=== PATIENT | male | born 1955 | race Caucasian/White ===

== ENCOUNTER 2017-07-26 15:42 | Observation (INO) | payer BC ==
[2017-07-26] MEDS ORDERED: NS 0.9% 1000 ML* 1,000 ML IV ONE ×3 (16:33→22:17)
[2017-07-26 16:54] LABS: ABS Basophils 0.1 10^3/ul (0-0.2); ABS Eosinophils 0.2 10^3/ul (0-0.6); ABS Lymphocytes 2.3 10^3/ul (1.0-4.8); ABS Monocytes 0.5 10^3/ul (0-0.8); ABS Neutrophils 4.5 10^3/ul (1.5-7.7); ABS Nucleated RBC 0 10^3/ul; Eosinophil % 2.3 % (0-6); Hematocrit 40 % (42-52); Hemoglobin 13.4 g/dl (14.0-18.0); Lymphocyte % 30.5 % (25-47); Mean Corpuscular HGB Conc 34 g/dl (31-36); Mean Corpuscular Hemoglobin 27 pg (27-31); Mean Corpuscular Volume 81 fL (80-94); Mean Platelet Volume 8.3 um3 (7.4-10.4); Nucleated Red Blood Cells % 0.2; Platelet Count 306 10^3/ul (150-450); Red Blood Count 4.94 10^6/ul (4.0-5.4); Red Cell Distribution Width 14 % (10.5-15); White Blood Count 7.5 10^3/ul (3.5-10.8)
[2017-07-26 17:02] LABS: INR 1.04 (0.77-1.02)
--- OUTSIDE RECORDS SUMMARY | 2017-07-26 17:05 | XMS REPORT ---
:1955 External Reference #:[id number] Author Organization Formerly [facility] Address [address] [place] [address] Phone [phone] Care Team Providers Name Role Phone Jami Olvera M.D. Primary Care Physician Unavailable Payers Type Date Identification Numbers Payment Provider Subscriber Commercial Effective: Policy Number: Nia Terrell 2013 [id number] Expires: 2016 Group Name: [employer] [place] [address] [address] PayID: [id number] MACI Molina [id number] Medigap Part B Effective: Policy Number: Nia Terrell 2010 [id number] Expires: 2013 Group Name: [employer] [address] [address] PayID: [id number] MACI Molina [id number] Medigap Part B Effective: Policy Number: Nia DONOVANISAÍAS Owencindy 2016 [id number] Group Name: [employer] [address] [address] PayID: [id number] MACI Molina 35597 Problems Description No Information Family History Date Family Member(s) Problem(s) Comments Father due to Cancer, Esophageal () Mother due to Cancer, Colon () Maternal Grandfather due to SC () Social History Type Date Description Comments Marital Status Lives With Spouse Cigarette Use current cigarette smoker occasional cigg, Quit as of 03/2011 Allergies, Adverse Reactions, Alerts Date Description Reaction Status Severity Comments 12/13/2004 NKDA active Medications Medication Date Status Form Strength Qnty SIG Indications Ordering Provider Miralax 07/13/ Active Powder 3350NF 510un 1 capful K62.89 Harry 2018 its mixed as Heetderks MD rachelle directions in water by mouth daily until stooling resumes. as needed after 2 days without stool. Ventolin HFA 08/08/ Active Aerosol 108(90Base 1unit 2 puffs J20.9 Lizzette 2016 ) mcg/Act s every every Dylon, 4-6 hours LOG HOOKER-C as needed wheezing/ti ghtness No Active 08/08/ Hx Unknown Medications 2017 - 2016 Doxycycline 08/08/ Hx Capsules 100mg 20cap 1 tab by J20.9 Lizzette Hyclate 2016 - s mouth twice Dylon, 07/04/ a day x 10 LOG HOOKER-C 2018 days Guaifenesin-Code 08/08/ Hx Syrup 100-10mg/5 240ml 1-2 J20.9 Lizzette ine 2017 - ML teaspoon Dylon, 07/04/ every 4-6 LOG HOOKER-C 2018 hours as needed cough Amoxicillin/Clav 05/29/ Hx Tablets 875-125mg 20tab 1 tablet 461.8 Lizzette silva 2012 - s bid x 10 Dylon, Potassium 08/08/ days LOG HOOKER-C 2016 Doxycycline 04/14/ Hx Capsules 100mg 2caps 2 po now 916.4 Shawnti Hyclate 2010 - for R. Storm, 08/08/ possible LOG HOOKER-C 2017 lyme disease exposure Clarithromycin 03/13/ Hx Tablets 500mg 20tab 1 po bid 486 Dannywnti 2010 - s for R. Storm, 08/08/ pneumonia LOG HOOKER-C 2017 Zithromax Z-Reji 09/01/ Hx Tablets 250mg 6tabs 2 po on day 466.0 Shawnti 2008 - 1, 1 po on R. Storm, 09/11/ days 2-5 LOG HOOKER-C 2008 Proventil HFA 09/01/ Hx Aerosol 108mcg/Act 1unit 2 puffs q4h 466.0 Shawnti 2008 - s prn cough, R. Storm, 08/08/ wheeze, LOG HOOKER-C 2016 shortness of breath Penicillin VK 05/08/ Hx Tablets 500mg 20tab One PO bid 034.0 Tiera 2007 - s For 10 Days A. 09/01/ Selina Yancey [facility] Physical Therapy 02/14/ Hx Zaire 2005 - treat right P. 09/01/ hip pain Selina Olvera M.D. Immunizations CPT Code Status Date Vaccine Lot # [id number] Given 07/18/2017 Zoster (Shingles) Vaccine (HZV), Recombinant, [id number] Subunit, Adjuvanted 34543 Given 07/18/2017 Tdap (Adacel) [id number] 98315 Given 03/26/2017 Influenza Virus Vaccine, Quadrivalent, 3 Yr > Quad, Preserv Free 92691 Given 05/07/2012 Tdap (Adacel) [id number] Vital Signs Date Vital Result Comment 07/18/2017 Weight 255.00 lb Weight in kg's 115.668 BP Systolic 114 mmHg BP Diastolic 74 mmHg Heart Rate 70 /min Body Temperature 97.6 F Respiratory Rate 17 /min O2 % BldC Oximetry 98 % 07/13/2017 Weight 262.00 lb Weight in kg's 118.843 BP Systolic 120 mmHg BP Diastolic 85 mmHg Heart Rate 80 /min Body Temperature 98.3 F 07/11/2017 Weight 260.00 lb Weight in kg's 117.936 BP Systolic 120 mmHg BP Diastolic 76 mmHg Heart Rate 96 /min Body Temperature 99.1 F O2 % BldC Oximetry 95 % 07/04/2017 Weight 268.00 lb Weight in kg's 121.565 BP Systolic 140 mmHg BP Diastolic 81 mmHg Heart Rate 76 /min Body Temperature 97.6 F Height 72 inches 6'0" BMI (Body Mass Index) 36.3 kg/m2 O2 % BldC Oximetry 94 % 08/08/2016 Weight 255.00 lb Weight in kg's 115.668 BP Systolic 132 mmHg BP Diastolic 90 mmHg Heart Rate 67 /min Body Temperature 96.4 F Respiratory Rate 18 /min O2 % BldC Oximetry 97 % 05/23/2013 Weight 259.00 lb Weight in kg's 117.482 BP Systolic 120 mmHg BP Diastolic 80 mmHg Heart Rate 80 /min Body Temperature 97.1 F 05/29/2012 Weight 259.00 lb Weight in kg's 117.482 BP Systolic 130 mmHg BP Diastolic 90 mmHg Heart Rate 78 /min Body Temperature 97.6 F O2 % BldC Oximetry 98 % 04/14/2011 Weight 258.00 lb Weight in kg's 117.029 BP Systolic 100 mmHg BP Diastolic 70 mmHg Heart Rate 68 /min Body Temperature 97.5 F 03/13/2011 Weight 250.00 lb Weight in kg's 113.400 BP Systolic 118 mmHg BP Diastolic 72 mmHg Heart Rate 82 /min Body Temperature 98.7 F Last Menstrual Period 0 O2 % BldC Oximetry 96 % At Room Air 09/01/2008 Weight 250.00 lb Weight in kg's 113.400 BP Systolic 130 mmHg BP Diastolic 90 mmHg Heart Rate 80 /min Body Temperature 97.2 F O2 % BldC Oximetry 93 % 99% after neb tx 05/08/2006 Weight 245.50 lb Weight in kg's 111.359 BP Systolic 110 mmHg BP Diastolic 72 mmHg Body Temperature 98.3 F Height 71.75 inches 5'11.75" BMI (Body Mass Index) 33.5 kg/m2 12/13/2004 Weight 247.00 lb Weight in kg's 112.039 BP Systolic 120 mmHg BP Diastolic 80 mmHg Heart Rate 80 /min Respiratory Rate 18 /min Height 71.75 inches 5'11.75" BMI (Body Mass Index) 33.7 kg/m2 08/24/2004 Weight 246.00 lb Weight in kg's 111.586 BP Systolic 134 mmHg BP Diastolic 78 mmHg Results Test Date Test Result H/L Range Note Laboratory test 07/18/2017 Hepatitis C Rna <pending> finding Quant Laboratory test 07/04/2017 Hepatitis C Undetected Undetected 1 finding Genotype Comp Metabolic 07/04/2017 Sodium 141 mmol/L 133-145 Panel Potassium 4.3 mmol/L 3.5-5.0 Chloride 105 mmol/L 101-111 Co2 Carbon Dioxide 31 mmol/L 22-32 Anion Gap 5 mmol/L 2-11 Glucose 102 mg/dL High 70-100 Blood Urea Nitrogen 13 mg/dL 6-24 Creatinine 1.11 mg/dL 0.67-1.17 BUN/Creatinine Ratio 11.7 8-20 Calcium 9.3 mg/dL 8.6-10.3 Total Protein 7.0 g/dL 6.4-8.9 Albumin 4.2 g/dL 3.2-5.2 Globulin 2.8 g/dL 2-4 Albumin/Globulin Ratio 1.5 1-3 Total Bilirubin 0.30 mg/dL 0.2-1.0 Alkaline Phosphatase 54 U/L 34-104 Alt 18 U/L 7-52 Ast 14 U/L 13-39 Egfr Non- 67.6 >60 Egfr 86.9 >60 2 CBC Auto Diff 07/04/2017 White Blood Count 6.5 10^3/uL 3.5-10.8 Red Blood Count 4.91 10^6/uL 4.0-5.4 Hemoglobin 13.5 g/dL Low 14.0-18.0 Hematocrit 41 % Low 42-52 Mean Corpuscular Volume 83 fL 80-94 Mean Corpuscular Hemoglobin 28 pg 27-31 Mean Corpuscular HGB Conc 33 g/dL 31-36 Red Cell Distribution Width 14 % 10.5-15 Platelet Count 219 10^3/uL 150-450 Mean Platelet Volume 9 um3 7.4-10.4 Abs Neutrophils 4.1 10^3/uL 1.5-7.7 Abs Lymphocytes 1.8 10^3/uL 1.0-4.8 Abs Monocytes 0.4 10^3/uL 0-0.8 Abs Eosinophils 0.2 10^3/uL 0-0.6 Abs Basophils 0 10^3/uL 0-0.2 Abs Nucleated RBC 0 10^3/uL Granulocyte % 62.0 % 38-83 Lymphocyte % 28.2 % 25-47 Monocyte % 6.0 % 0-7 Eosinophil % 3.0 % 0-6 Basophil % 0.8 % 0-2 Nucleated Red Blood Cells % 0 Liver Function Panel 07/04/2017 Direct Bilirubin 0.10 mg/dL 0.03-0.18 Indirect Bilirubin 0.2 mg/dL Low 0.3-1.0 Laboratory test finding 02/09/2017 Surgical Interface SEE RESULT BELOW 3, 4 Order Urinalysis W/Microscopic 05/30/2013 Urine Color Yellow Urine Appearance Clear Urine Specific Belcourt 1.024 1.010-1.030 Urine Esterase Negative Negative Urine Nitrate Negative Negative Urine Urobilinogen Negative E.U./dL Negative Urine Protein Negative mg/dL Negative Urine pH 5.0 5-9 Urine Blood Negative Negative Urine Ketones Negative mg/dL Negative Urine Bilirubin Negative Negative Urine Glucose Negative mg/dL Negative Urine RBC 1+ (<3 /hpf) None Seen Urine Mucus Present /lpf Absent Bacteria Urine 1+ None Seen Urine DIP 05/30/2013 Leukocytes NEG Neg Urine Nitrites NEG Neg Urine pH 5 5-6 Total Protein, Urine NEG Neg Urine Glucose NORM Norm Urine Ketones NEG Neg Urobilinogen NORM Norm Urine Bilirubin NEG Neg Urine Blood 50+ High Neg Specific Belcourt 1.025 High 1.01-1.02 Laboratory test finding 05/30/2013 Hemoglobin A1c 5.8 % Less than 6.0 5 Urine DIP 05/23/2013 Leukocytes NEG Neg Urine Nitrites NEG Neg Urine pH 5 5-6 Total Protein, Urine NEG Neg Urine Glucose NORM Norm Urine Ketones NEG Neg Urobilinogen NORM Norm Urine Bilirubin NEG Neg Urine Blood TRACE Neg Specific Belcourt 1.015 1.01-1.02 Comp Metabolic Panel 05/23/2013 Sodium 139 mmol/L 133-145 Potassium 4.7 mmol/L 3.5-5.0 Chloride 103 mmol/L 101-111 Co2 Carbon Dioxide 28.0 mmol/L 22-32 Anion Gap 8.0 mmol/L 2-11 Glucose 129 mg/dL High 70-100 Blood Urea Nitrogen 19 mg/dL 6-24 Creatinine 1.10 mg/dL 0.50-1.40 BUN/Creatinine Ratio 17.3 8-20 Calcium 9.5 mg/dL 8.1-9.9 Total Protein 7.7 g/dL 6.2-8.1 Albumin 4.4 g/dL 3.6-5.4 Globulin 3.3 g/dL 2-4 Albumin/Globulin Ratio 1.3 1-3 Total Bilirubin 0.6 mg/dL 0.4-1.5 Alkaline Phosphatase 61 U/L 30-110 Alt 25 U/L 14-54 Ast 21 U/L 12-42 Egfr Non- 69.2 >60 Egfr 89.1 >60 6 CBC Auto Diff 05/23/2013 White Blood Count 7.7 10^3/uL 4.8-10.8 Red Blood Count 5.32 10^6/uL 4.0-5.4 Hemoglobin 14.7 g/dL 14.0-18.0 Hematocrit 44 % 42-52 Mean Corpuscular Volume 82 fL 80-94 Mean Corpuscular Hemoglobin 28 pg 27-31 Mean Corpuscular HGB Conc 34 g/dL 31-36 Red Cell Distribution Width 14 % 10.5-15 Platelet Count 228 10^3/uL 150-450 Mean Platelet Volume 9 um3 7.4-10.4 Abs Neutrophils 4.5 10^3/uL 1.5-7.7 Abs Lymphocytes 2.7 10^3/uL 1.0-4.8 Abs Monocytes 0.3 10^3/uL 0-0.8 Abs Eosinophils 0.2 10^3/uL 0-0.6 Abs Basophils 0.1 10^3/uL 0-0.2 Abs Nucleated RBC 0 10^3/uL Granulocyte % 57.9 % 38-83 Lymphocyte % 34.5 % 25-47 Monocyte % 4.1 % 1-9 Eosinophil % 2.4 % 0-6 Basophil % 1.1 % 0-2 Nucleated Red Blood Cells % 0 GC/Chlamydia Amplified Rna 05/23/2013 GC/Chlamydia Rna (SEE NOTE) 7 Urinalysis W/Microscopic 05/23/2013 Urine Color Yellow Urine Appearance Clear Urine Specific Belcourt 1.015 1.010-1.030 Urine Esterase Negative Negative Urine Nitrate Negative Negative Urine Urobilinogen Negative E.U./dL Negative Urine Protein Negative mg/dL Negative Urine pH 5.5 5-9 Urine Blood Negative Negative Urine Ketones Negative mg/dL Negative Urine Bilirubin Negative Negative Urine Glucose Negative mg/dL Negative Urine WBC None Seen None Seen Urine RBC None Seen None Seen Bacteria Urine None Seen None Seen Laboratory test finding 05/08/2006 Strep Screen pos Neg Lipid Profile (Trig/Chol/HDL) 12/14/2004 Cholesterol 222 mg/dL High Less Than 200 8 Triglyceride 233 mg/dL High 40-200 High Density Lipoprotein 41 mg/dL 40-60 Low Density Lipoprotein 134 mg/dL High Less Than 100 9 Cholesterol/HDL Ratio 5.41 AVERAGE High 1-4.97 Comp Metabolic Panel 12/14/2004 Anion Gap 10.0 mmol/L 2-11 10 Albumin/Globulin Ratio 1.6 1-3 Albumin 4.3 GM/DL 3.6-5.4 Alkaline Phosphatase 63 U/L 39-117 Alt (SGPT) 30 U/L 17-63 Ast (Sgot) 23 U/L 12-42 BUN 13 mg/dL 6-24 Calcium 9.9 mg/dL 8.7-10.2 Chloride 106 mmol/L 101-111 Co2 (Carbon Dioxide) 26.0 mmol/L 22-32 Creatinine 1.3 mg/dL 0.5-1.4 Globulin 2.7 GM/DL 2-4 Glucose 96 mg/dL 70-105 Potassium 5.1 mmol/L High 3.5-5.0 Sodium 142 mmol/L 135-145 Bilirubin Total 0.6 mg/dL 0.4-1.5 Total Protein 7.0 GM/DL 6.2-8.1 BUN/Creatinine Ratio 10.0 8-20 CBC With Electronic Diff 12/14/2004 White Blood Count 7.4 CUMM 4.8-10.8 Abs Basophils 0 0-0.2 Abs Eosinophils 0.3 0-0.6 Abs Grans 4.3 1.5-7.7 Abs Lymphs 2.3 1.0-4.8 Abs Mononuclear 0.4 0-0.8 Basophil % 0.6 % 0-2 Hematocrit 44 % 42-52 Hemoglobin 14.9 g/dL 14.0-18.0 Eosinophil % 3.9 % 0-6 Gran % 58.4 % 38-83 Lymph % 31.1 % 20-45 Mean Corpuscular HGB Cone 34 g/dL 32-36 Mean Corpuscular Hemoglob 28 pg 27-31 Mean Corpuscular Volume 84 um3 80-94 Mean Platelet Volume 10.1 um3 7.4-10.4 Mononuclear % 6.0 % 1-9 Platelet Count 259 CUMM 150-450 Red Cell Count 5.27 CUMM 4.6-6.2 Redcell Distribution WDTH 14 % 10.5-15 Urine DIP 12/13/2004 Leukocytes NEG Neg Urine Nitrites NEG Neg Urine pH 5 5-6 Total Protein, Urine NEG Neg Urine Glucose NORM Norm Urine Ketones NEG Neg Urobolinogen NORM Norm Urine Bilirubin NEG Neg Urine Blood NEG Neg 1 Assay failed to detect HCV RNA. This assay is not intended for HCV RNA detection purposes. ADDITIONAL INFORMATION This test was performed using the [employer] RealTime HCV Genotype II assay ([employer] [place], [place]). Test Performed by: [facility] [address] [place] [address] 2 Because ethnic data is not always readily available, this report includes an eGFR for both -Americans and non- Americans. The National Kidney Disease Education Program (NKDEP) does not endorse the use of the MDRD equation for patients that are not between the ages of 18 and 70, are , have extremes of body size, muscle mass, or nutritional status, or are non- or non-. According to the National Kidney Foundation, irrespective of diagnosis, the stage of the disease is based on the level of kidney function: Stage Description GFR(mL/min/1.73 m(2)) 1 Kidney damage with normal or decreased GFR 90 2 Kidney damage with mild decrease in GFR 60-89 3 Moderate decrease in GFR 30-59 4 Severe decrease in GFR 15-29 5 Kidney failure <15 (or dialysis) 3 [id number] 4 SEE RESULT BELOW Name: TYSON TERRELL : [address]: Elmer Romero MD Acct: [id number] Unit: [id number] AGE: 61 Location: [facility] Re02/09/17 SEX: M Status: DEP REF SPEC: [id number] PARISH: 02/09/[address]: Elmer Romero MD REQ: [id number] RECD: 02/09/17 STATUS: JACKELINE RODRIGUEZ DR: Jami Olvera MD _ ORDERED: LEVEL 4 COMMENTS: [id number] FINAL DIAGNOSIS Colon, ascending, biopsy: -- Benign colonic mucosa with nodular reactive lymphoid aggregate. CLINICAL HISTORY No history given POST-OPERATIVE DIAGNOSIS Ascending colon polyps, status post cold snare, diverticulosis. Conclusions/ Plan: Await pathology GROSS DESCRIPTION The specimen is received in formalin labeled, Ascending Colon Biopsy, and consists of a 0.6 x 0.6 x 0.1 cm aggregate of jeffries irregular soft tissue fragments which is submitted entirely in one cassette. Signed (signature on file) Jennifer Webster MD 01/21 1333 END OF REPORT * ML=Testing performed at Main Lab DEPARTMENT OF PATHOLOGY, [address] [place] [address] Misael Butts M.D. Director [facility] # [id number] 5 Therapeutic target for the treatment of diabetes Mellitus patients is <7% HBA1C, and in selective patients <6.0%.Please refer to [place] [employer] Association Diabetic care guidelines for further information. 6 Because ethnic data is not always readily available, this report includes an eGFR for both -Americans and non- Americans. The National Kidney Disease Education Program (NKDEP) does not endorse the use of the MDRD equation for patients that are not between the ages of 18 and 70, are , have extremes of body size, muscle mass, or nutritional status, or are non- or non-. According to the National Kidney Foundation, irrespective of diagnosis, the stage of the disease is based on the level of kidney function: Stage Description GFR(mL/min/1.73 m(2)) 1 Kidney damage with normal or decreased GFR 90 2 Kidney damage with mild decrease in GFR 60-89 3 Moderate decrease in GFR 30-59 4 Severe decrease in GFR 15-29 5 Kidney failure <15 (or dialysis) 7 RUN DATE: 05/27/13 [facility] LAB LIVE PAGE 1 RUN TIME: [address] [place] [address] Specimen Inquiry Name: TYSON TERRELL : [address]: Lizzette Pate NP Acct: [id number] Unit: [id number] AGE: 57 Location: [facility] Re05/23/13 SEX: M Status: REG REF SPEC: [id number] PARISH: 05/23/13-[address]: Lizzette Pate NP REQ: [id number] RECD: 05/23/13 STATUS: COMP _ SOURCE: URINE SPDESC: ORDERED: LOREE/Zaira RNA QUERIES: Medent Number [id number] Procedure Result Verified Site Chlamydia Trachomatis RNA Final 05/27/13- 1508 ML NEGATIVE for Chlamydia trachomatis rRNA GC (N. gonorrhoeae) RNA Final 05/27/13- 1515 ML NEGATIVE for Neisseria gonorrhoeae rRNA A negative result does not preclude the presence of a C. trachomatis or N. gonorrhoeae infection because results are dependent on adequate specimen collection, absence of inhibitors, and sufficient rRNA to be detected. Test results may be affected by improper specimen collection, improper storage, technical error, or specimen mixup. Limitations of the Procedure: The Aptima Combo 2 Assay is not intended for the evaluation of suspected sexual abuse or for other medico-legal indications. For those patients for whom a false positive result may have adverse psychosocial impact, the CDC recommends retesting by a method using an alternate technology. Therapeutic failure or success cannot be determined with the Aptima Combo 2 Assay since nucleic acid may persist following appropriate antimicrobial therapy. Results from the Aptima Combo 2 Assay should be interpreted in conjunction with other laboratory and clinical data available to the clinican. CONTINUED ON NEXT PAGE * ML=Testing performed at Main Lab DEPARTMENT OF PATHOLOGY, [facility] [employer] [place], [place] [address] Misael Butts M.D. Director [facility] Permit #[id number] RUN DATE: 05/27/13 [facility] LAB LIVE PAGE 2 RUN TIME: [address] [facility] [employer] [place], [place] [address] Specimen Inquiry Patient: TYSON TERRELL [id number] (Continued) Specimen: [id number] Collected: 05/23/13 Received: 05/23/13 (Continued) Procedure Result Verified Site GC (N. gonorrhoeae) RNA Final (continued) 05/27/13- 1519 Performance characteristics for detecting C. trachomatis and N. gonorrhoeae are derived from high prevalence populations. Positive results in low prevalence populations should be interpreted carefully with the understanding that the likelihood of a false positive may be higher than a true positive. END OF REPORT * ML=Testing performed at Main Lab DEPARTMENT OF PATHOLOGY, [address] [place] [address] Misael Butts M.D. Director [facility] Permit #[id number] Classification: Borderline High . 9 CALCULATED LDL APPROXIMATES THE VALUE OF A DIRECT LDL MEASUREMENT. Classification: Borderline High . 10 Anion gap measurement may be of limited value in the presence of any alkalosis, especially in a combined acid base disorder. . Procedures Date CPT Code Description Status Comment 02/04/2010 Colonoscopy Completed diverticulosis, otherwise negative. 2004- colonoscopy with inflamed adenomatous polyp. 09/01/2008 44081 Nebulizer Treatment Completed Encounters Type Date Location Provider CPT E/M Dx Office Visit 07/13/2017 9:15a [place] [address] K62.89 Office Visit 07/04/2017 2:30p [place] [address] B18.2 Office Visit 08/08/2016 4:00p Main Office MARCOS Sewell-C 06968 J20.9 Office Visit 05/23/2013 11:30a Main Office MARCOS Sewell-C 71558 599.70 Office Visit 05/29/2012 4:00p Main Office MARCOS Sewell-C 69524 461.8 Office Visit 04/14/2011 2:15p Main Office MARCOS Morris-C 36488 916.4 Office Visit 03/13/2011 11:00a Main Office MARCOS Morris-C 64804 486 Office Visit 09/01/2008 11:30a Main Office MARCOS Morris-C 56007 466.0 Office Visit 05/08/2006 10:30a Main Office Tiera Yancey 35710 034.0 F.N.P.C. Office Visit 12/13/2004 2:00p Main Office Jami Olvera M.D. 37208 V70.0 V17.3 V16.0 477.9 719.45 Office Visit 08/24/2004 1:00p Main Office Jami Olvera M.D. 37160 238.2 Plan of Care Future Appointment(s):08/15/2017 8:00 am - Harry Porter MD at Main Gslyoa3407/18/2017 - Harry Porter MDB18.2 Chronic viral hepatitis CComments: Asymptomatic, chronic HCV discovered on donating blood. His genotyping blood work did not show any hepatitis C. We will check a quantitative PCR just in case , but if this is normal I think we can confidently say he has cleared the infection on his own. If this is the case he can forego the GI visit.Ifpositive he will have to see them after allHis liver enzymes look great.K62.89 Other specified diseases of anus and rectumComments:His rectal abscess symptoms are gradually clearing. Still having some drainage, he will follow up with Dr. Barksdale on Sunday
--- OUTSIDE RECORDS SUMMARY | 2017-07-26 17:05 | XMS REPORT ---
:1955 External Reference #:[id number] Author Organization [facility] Address [address] [address] Phone [phone] Care Team Providers Name Role Phone Harry Porter MD Primary Care Physician Unavailable Payers Type Date Identification Numbers Payment Provider Subscriber Commercial Policy Number: [id number] [employer] Nima Terrell Group Number: [id number] [address] [address] Group Name: [place] [address] PayID: [id number] Problems Description No Information Social History Type Date Description Comments Smoking Patient is a former smoker Allergies, Adverse Reactions, Alerts Date Description Reaction Status Severity Comments 07/13/2017 NKDA active Medications Medication Date Status Form Strength Qnty SIG Indications Ordering Provider Augmentin Active Tablets 875-125mg 14tabs 1 tab by K61.1 Amrik 018 mouth Mecenas, twice a , FACS day Preparation H Active Cream 1-0.25-14.4 apply thin Unknown 000 -15% layer to external rectum 3-4 times a day as needed for pain/burni ng. Ibuprofen 200 0 Active Tablets 200mg 400-600mg Unknown 000 every 6 hours as needed for pain. Vital Signs Date Vital Result Comment 07/13/2017 Height 72 inches 6'0" Weight 250.00 lb Heart Rate 74 /min BP Systolic 140 mmHg BP Diastolic 88 mmHg Respiratory Rate 16 /min Body Temperature 97.9 F BMI (Body Mass Index) 33.9 kg/m2 Results Description No Information Procedures Date CPT Code Description Status 02/09/2017 38847 Colonoscopy Flexible Remove Tumor/Polyp/Lesion Snare Completed Technique 02/09/2017 Colonoscopy Completed Plan of Care Future Appointment(s):07/16/2017 11:30 am - Amrik Barksdale MD, [facility] at [facility]07/13/2017 - Amrik Barksdale MD, FACSK61.1 Rectal abscessNew Medication:Augmentin 875-125 mgFollow up:3-5 daysInstructions:Tub soaks 15-20 minutes 2 x/day. Use water as warm as tolerated. The packing will come out -- don't worry. Take all the antibiotics as prescribed.
--- OUTSIDE RECORDS SUMMARY | 2017-07-26 17:05 | XMS REPORT ---
:1955 External Reference #:[id number] Author Organization [facility] Address [address] [address] Phone [phone] Care Team Providers Name Role Phone Harry Porter MD Primary Care Physician Unavailable Payers Type Date Identification Numbers Payment Provider Subscriber Commercial Policy Number: [id number] [employer] Tyson Terrell Group Number: [id number] [address] [id number] Group Name: [place] [address] PayID: [id number] Problems Description No Information Social History Type Date Description Comments Smoking Patient is a former smoker Allergies, Adverse Reactions, Alerts Date Description Reaction Status Severity Comments 07/13/2017 NKDA active Medications Medication Date Status Form Strength Qnty SIG Indications Ordering Provider No Active Active Unknown Medications 018 Augmentin Hx Tablets 875-125mg 14tabs 1 tab by K61.1 Amrik Maldonado mouth [place], twice a , FACS day Preparation H Hx Cream 1-0.25-14.4 apply thin Unknown 000 -15% layer to external rectum 3-4 times a day as needed for pain/burni ng. Ibuprofen 200 0 Hx Tablets 200mg 400-600mg Unknown 000 every 6 hours as needed for pain. Vital Signs Date Vital Result Comment 07/20/2017 Heart Rate 78 /min Respiratory Rate 18 /min Body Temperature 96.6 F 07/16/2017 Heart Rate 82 /min Respiratory Rate 16 /min Body Temperature 97.7 F 07/13/2017 Height 72 inches 6'0" Weight 250.00 lb Heart Rate 74 /min BP Systolic 140 mmHg BP Diastolic 88 mmHg Respiratory Rate 16 /min Body Temperature 97.9 F BMI (Body Mass Index) 33.9 kg/m2 Results Test Date Test Result H/L Range Note Body Fluid C&S 07/13/2017 Body Fluid Cult Gram SEE RESULT BELOW 1 Stain 1 SEE RESULT BELOW Name: TYSON TERRELL : [address]: Amrik Barksdale MD Acct: [id number] Unit: [id number] AGE: 61 Location: [facility] Re07/13/17 SEX: M Status: REG REF SPEC: [id number] PARISH: 07/13/17-1130 [facility] DR: Amrik Barksdale MD REQ: [id number] RECD: 07/13/17 STATUS: COMP _ SOURCE: BODY FLUID SPDESC:RECTAL ORDERED: BF Cult/GS Procedure Result Reported Site Body Fluid Gram Stain Final 07/14/17- 0732 ML 4+ Neutrophils 4+ Gram Positive Cocci 4+ Gram Negative Bacilli Preparation By Direct Smear Body Fluid Culture Final 07/18/17- 0825 ML Organism 1 ESCHERICHIA COLI Quantity 3+ Organism 2 ESCHERICHIA COLI#2 Quantity 3+ Organism 3 BACTEROIDES FRAGILIS Quantity 3+ Beta Lactamase Positive Organism 4 STREPTOCOCCUS VIRIDANS GROUP Quantity 3+ Anaerobic sensitivities are not routinely performed. Positive isolates will be saved for one week. Please call the Microbiology Laboratory if susceptibility testing is needed. CONTINUED ON NEXT PAGE DEPARTMENT OF PATHOLOGY, [address] [place] [address] Misael Butts M.D. Director [facility] # [id number] Patient: TYSON TERRELL [id number] (Continued) Specimen: [id number] Collected: 07/13/17 Received: 07/13/17 (Continued) Procedure Result Reported Site Body Fluid Culture Final (continued) 07/18/17- 824 1. ESCHERICHIA COLI M.I.C. RX --------- ------ Ampicillin >=32 R Cefazolin <=4 S Cefepime <=1 S Ceftriaxone <=1 S Ciprofloxacin <=0.25 S Gentamicin <=1 S Levofloxacin <=0.12 S Meropenem <=0.25 S Nitrofurantoin <=16 S Tetracycline <=1 S Pipercillin/Tazobactam <=4 S Trimethoprim/Sulfamethoxazole <=20 S Amoxicillin/Clavulanic Acid 4 S Aztreonam <=1 S 2. ESCHERICHIA COLI#2 M.I.C. RX --------- ------ Ampicillin >=32 R Cefazolin <=4 S Cefepime <=1 S Ceftriaxone <=1 S Ciprofloxacin <=0.25 S Gentamicin >=16 R Levofloxacin <=0.12 S Meropenem <=0.25 S Nitrofurantoin <=16 S Tetracycline >=16 R Pipercillin/Tazobactam <=4 S Trimethoprim/Sulfamethoxazole >=320 R Amoxicillin/Clavulanic Acid 4 S Aztreonam <=1 S CONTINUED ON NEXT PAGE DEPARTMENT OF PATHOLOGY, [address] [place] [address] Misael Butts M.D. Director [facility] # [id number] Patient: TYSON TERRELL [id number] (Continued) Specimen: [id number] Collected: 07/13/17 Received: 07/13/17 (Continued) Procedure Result Reported Site Body Fluid Culture Final (continued) 07/18/17824 4. STREPTOCOCCUS VIRIDANS GROUP M.I.C. RX --------- ------ Chloramphenicol <=1 S Ampicillin <=0.06 S Penicillin <=0.03 S Meropenem <=0.06 S Cefepime <=0.25 S * Cefotaxime <=0.25 S Ceftriaxone <=0.25 S Levofloxacin <=0.25 S Azithromycin <=0.25 S Clindamycin <=0.06 S Erythromycin <=0.06 S Tetracycline >4 R Vancomycin 0.5 S Contact the Microbiology Department for any additional antibiotic reporting. * ML - Main Lab . END OF REPORT DEPARTMENT OF PATHOLOGY, [address] [place] [address] Misael Btuts M.D. Director [facility] # [id number] Procedures Date CPT Code Description Status 07/13/2017 22697 Anoscopy Completed 07/13/2017 66227 I&D Of Abscess Complicated Completed 02/09/2017 80901 Colonoscopy Flexible Remove Tumor/Polyp/Lesion Snare Completed Technique 02/09/2017 Colonoscopy Completed Plan of Care 07/16/2017 - Amrik Barksdale MD, FACSK61.1 Rectal abscessFollow up:Sunday with mid -level provider.
--- OUTSIDE RECORDS SUMMARY | 2017-07-26 17:05 | XMS REPORT ---
:1955 External Reference #:[id number] Author Organization [facility] Address [address] [address] Phone [phone] Care Team Providers Name Role Phone Harry Porter MD Primary Care Physician Unavailable Payers Type Date Identification Numbers Payment Provider Subscriber Commercial Policy Number: [id number] [employer] Tyson Terrell Group Number: [id number] [address] [id number] Group Name: [place] [address] PayID: [id number] Problems Description No Information Social History Type [...] pain. Vital Signs Date Vital Result Comment 07/16/2017 Heart Rate 82 /min Respiratory Rate [...] [address]: Amrik Barksdale MD Acct: [id number] Unit: [id number] AGE: 61 Location: [facility] Re07/13/17 SEX: M Status: REG REF SPEC: [id number] PARISH: 07/13/17-[address] [facility] [address]: Amrik Barksdale MD REQ: [id number] RECD: 07/13/17 STATUS: RES _ SOURCE: BODY FLUID SPDESC:RECTAL ORDERED: BF Cult/GS Procedure Result Reported Site Body Fluid Gram Stain Final 07/14/17- 0732 ML 4+ Neutrophils 4+ Gram Positive Cocci 4+ Gram Negative Bacilli Preparation By Direct Smear Body Fluid Culture Preliminary 07/16/17- 0840 ML Organism 1 ESCHERICHIA COLI Quantity 3+ Organism 2 ESCHERICHIA COLI#2 Quantity 3+ Organism 3 STREPTOCOCCUS ANGINOSUS Quantity 3+ Organism 4 BACTEROIDES FRAGILIS Quantity 3+ Beta Lactamase Positive Anaerobic sensitivities are not routinely performed. Positive isolates will be saved for one week. Please call the Microbiology Laboratory if susceptibility testing is needed. CONTINUED ON NEXT PAGE DEPARTMENT OF PATHOLOGY, [address] [place] [address] Misael Butts M.D. Director [facility] # [id number] Patient: TYSON TERRELL [id number] (Continued) Specimen: [id number] Collected: 07/13/17 Received: 07/13/17 (Continued) Procedure Result Reported Site Body Fluid Culture Preliminary (continued) 07/16/17- 839 1. ESCHERICHIA COLI M.I.C. RX --------- ------ [...] CONTINUED ON NEXT PAGE DEPARTMENT OF PATHOLOGY, [address] [place] [address] Misael Butts M.D. Director [facility] # [id number] Patient: TYSON TERRELL [id number] (Continued) Specimen: [id number] Collected: 07/13/17 Received: 07/13/17 (Continued) Procedure Result Reported Site Body Fluid Culture Preliminary (continued) Contact the Microbiology Department for any additional antibiotic reporting. * ML - Main Lab . END OF REPORT DEPARTMENT OF PATHOLOGY, [address] [place] [address] Misael Butts M.D. Director [facility] # [id number] Procedures Date CPT Code Description Status 07/13/2017 52810 Anoscopy Completed 07/13/2017 88723 I&D Of Abscess Complicated Completed 02/09/2017 42303 Colonoscopy Flexible Remove Tumor/Polyp/Lesion Snare Completed Technique 02/09/2017 Colonoscopy Completed Plan of Care Future Appointment(s):07/20/2017 11:00 am - DAISHA Jackson at [facility]07/16/2017 - Amrik Barksdale MD, FACSK61.1 Rectal abscessFollow up:Sunday with mid-level provider.
--- OUTSIDE RECORDS SUMMARY | 2017-07-26 17:06 | XMS REPORT ---
:1955 External Reference #:[id number] Author Organization [facility] Address [address] [place] [address] Phone [phone] Care Team Providers Name Role Phone Jami Olvera M.D. Primary Care Physician Unavailable Payers Type Date Identification Numbers Payment Provider Subscriber Commercial Effective: Policy Number: Nia Terrell 2013 [id number] Expires: 2016 Group Name: [employer] [place] [address] [address] PayID: [id number] MACI Molina [address] Medigap Part B Effective: Policy Number: Nia Terrell 2010 [id number] Expires: 2013 Group Name: [employer] [address] [address] PayID: [id number] MACI Molina 29908 Medigap Part B Effective: Policy Number: Nia DONOVANISAÍAS Owencindy 2016 [id number] Group Name: [employer] [address] [address] PayID: [id number] MACI Molina 24982 Problems Description No Information Family History Date Family Member(s) Problem(s) Comments Father due to Cancer, Esophageal () Mother due to Cancer, Colon () Maternal Grandfather due to GA () Social History Type Date Description Comments Marital Status Lives With Spouse Cigarette Use current cigarette smoker occasional cigg, Quit as of 03/2011 Allergies, Adverse Reactions, Alerts Date Description Reaction Status Severity Comments 12/13/2004 NKDA active Medications Medication Date Status Form Strength Qnty SIG Indications Ordering Provider Ventolin HFA 08/08/ Active Aerosol 108(90Base 1units 2 puffs J20.9 Lizzette 2016 ) mcg/Act every Dylon, every 4-6 TIRE STRIPPER-C hours as needed wheezing/t ightness No Active 08/08/ Hx Unknown Medications 2017 - 2016 Doxycycline 08/08/ Hx Capsules 100mg 20caps 1 tab by J20.9 Lizzette Hyclate 2017 - mouth Dyoln, 07/04/ twice a TIRE STRIPPER-C 2018 day x 10 days Guaifenesin-Code 08/08/ Hx Syrup 100-10mg/5 240ml 1-2 J20.9 Lizzette ine 2017 - ML teaspoon Dylon, 07/04/ every 4-6 TIRE STRIPPER-C 2018 hours as needed cough Amoxicillin/Clav 05/29/ Hx Tablets 875-125mg 20tabs 1 tablet 461.8 Lizzette silva 2012 - bid x 10 Dylon, Potassium 08/08/ days TIRE STRIPPER-C 2016 Doxycycline 04/14/ Hx Capsules 100mg 2caps 2 po now 916.4 Shawnti Hyclate 2010 - for R. Storm, 08/08/ possible TIRE STRIPPER-C 2017 lyme disease exposure Clarithromycin 03/13/ Hx Tablets 500mg 20tabs 1 po bid 486 Shawnti 2010 - for R. Daniel, 08/08/ pneumonia TIRE STRIPPER-C 2017 Zithromax Z-Reji 09/01/ Hx Tablets 250mg 6tabs 2 po on 466.0 Donaldnti 2008 - day 1, 1 R. Storm, 09/11/ po on days TIRE STRIPPER-C 2008 2-5 Proventil HFA 09/01/ Hx Aerosol 108mcg/Act 1units 2 puffs 466.0 Shawnti 2008 - q4h prn R. Storm, 08/08/ cough, TIRE STRIPPER-C 2016 wheeze, shortness of breath Penicillin VK 05/08/ Hx Tablets 500mg 20tabs One PO bid 034.0 Tiera 2006 - For 10 A. 09/01/ Days Bc, 2009 [facility] Physical Therapy 02/14/ Hx Zaire 2004 - treat P. 09/01/ right hip Blegen, 2009 pain M.D. Immunizations CPT Code Status Date Vaccine Lot # [id number] Given 03/26/2017 Influenza Virus Vaccine, Quadrivalent, 3 Yr > Quad, Preserv Free Vital Signs Date Vital Result Comment 07/11/2017 Weight 260.00 lb Weight in kg's [...] Test Result H/L Range Note Laboratory test 07/04/2017 Hepatitis C Genotype Undetected Undetected 1 finding Comp Metabolic Panel 07/04/2017 Sodium 141 mmol/L 133-145 Potassium 4.3 mmol/L 3.5-5.0 Chloride 105 mmol/L [...] Color Yellow Urine Appearance Clear Urine Specific [place] 1.024 1.010-1.030 Urine Esterase Negative Negative Urine [...] Neg Urine Blood 50+ High Neg Specific [place] 1.025 High 1.01-1.02 Laboratory test finding 05/30/2013 Hemoglobin A1c 5.8 % Less than 6.0 5 Urine DIP 05/23/2013 Leukocytes NEG Neg Urine Nitrites NEG Neg Urine pH 5 5-6 Total Protein, Urine NEG Neg Urine Glucose NORM Norm Urine Ketones NEG Neg Urobilinogen NORM Norm Urine Bilirubin NEG Neg Urine Blood TRACE Neg Specific [place] 1.015 1.01-1.02 Comp Metabolic Panel 05/23/2013 Sodium [...] Color Yellow Urine Appearance Clear Urine Specific [place] 1.015 1.010-1.030 Urine Esterase Negative Negative Urine [...] the [place] RealTime HCV Genotype II assay ([employer] [place], [place]). Test Performed by: [facility] [place] [address] [place] [address] 2 Because ethnic data is not always [...] 5 Kidney failure <15 (or dialysis) 3 [id number] 4 SEE RESULT BELOW Name: TYSON TERRELL : [address]: Elmer Romero MD Acct: [id number] Unit: [id number] AGE: 61 Location: [facility] Re02/09/17 SEX: M Status: DEP REF SPEC: [id number] PARISH: 02/09/[address]: Elmer Romero MD REQ: [id number] RECD: 02/09/17 STATUS: JACKELINE RODRIGUEZ DR: Jami Olvera MD _ ORDERED: LEVEL 4 COMMENTS: [id number] FINAL DIAGNOSIS Colon, ascending, biopsy: -- Benign [...] performed at Main Lab DEPARTMENT OF PATHOLOGY, [address] [place], [place] [address] Misael Butts M.D. Director [facility] # [id number] 5 Therapeutic target for the treatment of diabetes Mellitus patients is <7% HBA1C, and in selective patients <6.0%.Please refer to [place] [employer] Association Diabetic care guidelines for further [...] <15 (or dialysis) 7 RUN DATE: 05/27/13 [facility] LAB LIVE PAGE 1 RUN TIME: 1514 [place], [place] [address] Specimen Inquiry Name: TYSON TERRELL : [address]: Lizzette Pate NP Acct: [id number] Unit: [id number] AGE: 57 Location: [facility] Re05/23/13 SEX: M Status: REG REF SPEC: [id number] PARISH: 05/23/13-[address] [facility] [address]: Lizzette Pate NP REQ: [id number] RECD: 05/23/13 STATUS: COMP _ SOURCE: URINE SPDESC: ORDERED: GC/Chlam RNA QUERIES: Medent Number [id number] Procedure Result Verified Site Chlamydia Trachomatis RNA [...] result may have adverse psychosocial impact, the [facility] recommends retesting by a method using an [...] performed at Main Lab DEPARTMENT OF PATHOLOGY, [facility] [employer] [place] [address] Misael Butts M.D. Director [facility] Permit #[id number] RUN DATE: 05/27/13 [facility] LAB LIVE PAGE 2 RUN TIME: 479 [facility] [employer] [place], [place] [address] Specimen Inquiry Patient: TYSON TERRELL [id number] (Continued) Specimen: [id number] Collected: 05/23/13-1155 Received: 05/23/13-1746 (Continued) Procedure Result Verified Site GC (N. gonorrhoeae) RNA Final (continued) 05/27/13- 1515 Performance characteristics for detecting C. trachomatis and N. gonorrhoeae are derived from high prevalence populations. Positive results in low prevalence populations should be interpreted carefully with the understanding that the likelihood of a false positive may be higher than a true positive. END OF REPORT * ML=Testing performed at Main Lab DEPARTMENT OF PATHOLOGY, [address] [place] [address] Misael Butts M.D. Director [facility] Permit #[id number] Classification: Borderline High . 9 CALCULATED LDL APPROXIMATES THE VALUE OF A DIRECT LDL MEASUREMENT. Classification: Borderline High . 10 Anion gap measurement may be of limited value in the presence of any alkalosis, especially in a combined acid base disorder. . Procedures Date CPT Code Description Status Comment 02/04/2010 Colonoscopy Completed diverticulosis, otherwise negative. 2004- colonoscopy with inflamed adenomatous polyp. 09/01/2008 44900 Nebulizer Treatment Completed Encounters Type Date Location Provider CPT E/M Dx Office Visit 08/08/2016 4:00p Main Office DANA Sewell 75106 J20.9 Office Visit 05/23/2013 11:30a Main Office CHETNA SewellC 00383 599.70 Office Visit 05/29/2012 4:00p Main Office Lizzette Pate, [facility] 24261 461.8 Office Visit 04/14/2011 2:15p Main Office Ferny Sanchez, [facility] [address]0880 916.4 Office Visit 03/13/2011 11:00a Main Office Dannyfélixseth Sanchez, [facility] 70759 486 Office Visit 09/01/2008 11:30a Main Office Ferny Sanchez, [facility] 02010 466.0 Office Visit 05/08/2006 10:30a Main Office Tiera Yancey, [address] 034.0 [facility] Office Visit 12/13/2004 2:00p Main Office Jami Olvera M.D. 94043 V70.0 V17.3 V16.0 477.9 719.45 Office Visit 08/24/2004 1:00p Main Office Jami Olvera M.D. 91491 238.2 Plan of Care Future Appointment(s):08/15/2017 8:00 am - Harry Porter MD at Main Sidrpb9507/11/2017 - Harry Porter MDK62.89 Other specified diseases of anus and fvicyeW76.0 Acute anal fissureComments:He is already healing. We discussed that there is a very low risk of infection with an injury to this area.We will soften his stool to help with comfort while he heals.Recommendations:-Sitz bath -Prep-H -Miralax 1-2 daily. -Colace 1-2 daily
--- OUTSIDE RECORDS SUMMARY | 2017-07-26 17:06 | XMS REPORT ---
:1955 External Reference #:[id number] Author Organization [facility] Address [address] [place] [address] Phone [phone] Care Team Providers Name Role Phone Jami Olvera M.D. Primary Care Physician Unavailable Payers Type Date Identification Numbers Payment Provider Subscriber Commercial Effective: Policy Number: Nia Arguello 2013 [id number] Expires: 2016 Group Name: BC/BS of [place] [address] [address] PayID: [id number] MACI Molina [id number] Medigap Part B Effective: Policy Number: Nia Arguello 2010 [id number] Expires: 2013 Group Name: [employer] [address] [address] PayID: [id number] MACI Molina 29538 Medigap Part B Effective: Policy Number: Nia DONOVANISAÍAS Owencindy 2016 [id number] Group Name: [employer] [address] [address] PayID: [id number] MACI Molina [id number] Problems Description No Information Family History Date Family Member(s) Problem(s) Comments Father due to Cancer, Esophageal () Mother due to Cancer, Colon () Maternal Grandfather due to [place] () Social History Type Date Description Comments [...] mcg/Act s every every Dylon, 4-6 hours BUCKLE STRINGER-C as needed wheezing/ti ghtness No Active 08/08/ Hx Unknown Medications 2017 - 2016 Doxycycline 08/08/ Hx Capsules 100mg 20cap 1 tab by J20.9 Lizzette Hyclate 2016 - s mouth twice Dylon, 07/04/ a day x 10 BUCKLE STRINGER-C 2018 days Guaifenesin-Code 08/08/ Hx Syrup 100-10mg/5 240ml 1-2 J20.9 Lizzette ine 2017 - ML teaspoon Dylon, 07/04/ every 4-6 BUCKLE STRINGER-C 2018 hours as needed cough Amoxicillin/Clav 05/29/ Hx Tablets 875-125mg 20tab 1 tablet 461.8 Lizzette silva 2012 - s bid x 10 Dylon, Potassium 08/08/ days BUCKLE STRINGER-C 2016 Doxycycline 04/14/ Hx Capsules 100mg 2caps 2 po now 916.4 Shawnti Hyclate 2010 - for R. Storm, 08/08/ possible BUCKLE STRINGER-C 2017 lyme disease exposure Clarithromycin 03/13/ Hx Tablets 500mg 20tab 1 po bid 486 Dannywnti 2010 - s for R. Storm, 08/08/ pneumonia BUCKLE STRINGER-C 2017 Zithromax Z-Reji 09/01/ Hx Tablets 250mg 6tabs 2 po on day 466.0 Shawnti 2008 - 1, 1 po on R. Storm, 09/11/ days 2-5 BUCKLE STRINGER-C 2008 Proventil HFA 09/01/ Hx Aerosol 108mcg/Act 1unit 2 puffs q4h 466.0 Shawnti 2008 - s prn cough, R. Storm, 08/08/ wheeze, BUCKLE STRINGER-C 2016 shortness of breath Penicillin VK 05/08/ Hx Tablets 500mg 20tab One PO bid 034.0 Tiera 2007 - s For 10 Days A. 09/01/ Selina Yancey F.N.P.C[facility] Physical Therapy 02/14/ Linda Tai 2005 - treat right P. 09/01/ hip pain Selina Olvera M.D. Immunizations CPT Code Status Date Vaccine Lot # [id number] Given 03/26/2017 Influenza Virus Vaccine, Quadrivalent, 3 Yr > Quad, Preserv Free Vital Signs Date Vital Result Comment 07/13/2017 Weight 262.00 lb Weight in kg's [...] Color Yellow Urine Appearance Clear Urine Specific [place] 1.024 1.010-1.030 Urine Esterase Negative Negative Urine [...] Neg Urine Blood 50+ High Neg Specific [place] 1.025 High 1.01-1.02 Laboratory test finding 05/30/2013 Hemoglobin A1c 5.8 % Less than 6.0 5 Urine DIP 05/23/2013 Leukocytes NEG Neg Urine Nitrites NEG Neg Urine pH 5 5-6 Total Protein, Urine NEG Neg Urine Glucose NORM Norm Urine Ketones NEG Neg Urobilinogen NORM Norm Urine Bilirubin NEG Neg Urine Blood TRACE Neg Specific [place] 1.015 1.01-1.02 Comp Metabolic Panel 05/23/2013 Sodium [...] Color Yellow Urine Appearance Clear Urine Specific [place] 1.015 1.010-1.030 Urine Esterase Negative Negative Urine [...] the [place] RealTime HCV Genotype II assay ([employer] [place], [place]). Test Performed by: [facility] [address] [place] [address] 2 Because ethnic data is not always [...] 5 Kidney failure <15 (or dialysis) 3 [id number] 4 SEE RESULT BELOW Name: TYSON ARGUELLO : [address]: Elmer Romero MD Acct: [id number] Unit: [id number] AGE: 61 Location: [facility] Re02/09/17 SEX: M Status: DEP REF SPEC: [id number] PARISH: 02/09/[address] [facility] [address]: Elmer Romero MD REQ: [id number] RECD: 02/09/17 STATUS: JACKELINE RODRIGUEZ DR: Jami Olvera MD _ ORDERED: LEVEL 4 COMMENTS: [id number] FINAL DIAGNOSIS Colon, ascending, biopsy: -- Benign [...] performed at Main Lab DEPARTMENT OF PATHOLOGY, [facility] [place] [address] Misael Butts M.D. Director [facility] # [id number] 5 Therapeutic target for the treatment of diabetes Mellitus patients is <7% HBA1C, and in selective patients <6.0%.Please refer to [place] Diabetes Association Diabetic care guidelines for further [...] LAB LIVE PAGE 1 RUN TIME: 1514 [facility] [employer] [place], [place] [address] Specimen Inquiry Name: TYSON ARGUELLO : [address]: Lizzette Pate NP Acct: [id number] Unit: [id number] AGE: 57 Location: [facility] Re05/23/13 SEX: M Status: REG REF SPEC: [id number] PARISH: 05/23/13-[address] [facility] [address]: Lizzette Pate NP REQ: [id number] RECD: 05/23/13 STATUS: COMP _ SOURCE: URINE SPDESC: ORDERED: GC/Chlam RNA QUERIES: Medent Number [id number] Procedure Result Verified Site Chlamydia Trachomatis RNA [...] result may have adverse psychosocial impact, the [facility] recommends retesting by a method using an [...] performed at Main Lab DEPARTMENT OF PATHOLOGY, [facility] [place] [address] Misael Butts M.D. Director [facility] Permit #[id number] RUN DATE: 05/27/13 [facility] LAB LIVE PAGE 2 RUN TIME: 1405 [facility] [employer] [place], [place] [address] Specimen Inquiry Patient: TYSON ARGUELLO [id number] (Continued) Specimen: [id number] Collected: 05/23/13-1156 Received: 05/23/13-1746 (Continued) Procedure Result Verified Site [...] performed at Main Lab DEPARTMENT OF PATHOLOGY, [address] [place] [address] Misael Butts M.D. Director [facility] Permit #[id number] Classification: Borderline High . 9 CALCULATED LDL APPROXIMATES THE VALUE OF A DIRECT LDL MEASUREMENT. Classification: Borderline High . 10 Anion gap measurement may be of limited value in the presence of any alkalosis, especially in a combined acid base disorder. . Procedures Date CPT Code Description Status Comment 02/04/2010 Colonoscopy Completed diverticulosis, otherwise negative. 2004- colonoscopy with inflamed adenomatous polyp. 09/01/2008 39691 Nebulizer Treatment Completed Encounters Type Date Location Provider CPT E/M Dx Office Visit 08/08/2016 4:00p Main Office MARCOS Sewell-C 53178 J20.9 Office Visit 05/23/2013 11:30a Main Office Lizzette Pate [employer]-C 00341 599.70 Office Visit 05/29/2012 4:00p Main Office Lizzette Pate [employer]INGER-C 85685 461.8 Office Visit 04/14/2011 2:15p Main Office Ferny Sanchez [facility] 53641 916.4 Office Visit 03/13/2011 11:00a Main Office Ferny Sanchez [facility] [employer]-C 25241 486 Office Visit 09/01/2008 11:30a Main Office Ferny Sanchez [facility]C 35160 466.0 Office Visit 05/08/2006 10:30a Main Office Tiera Yancey, 51696 034.0 F.N.P.C. Office Visit 12/13/2004 2:00p Main Office Jami Olvera M.D. 97001 V70.0 V17.3 V16.0 477.9 719.45 Office Visit 08/24/2004 1:00p Main Office Jami Olvera M.D. 02401 238.2 Plan of Care Future Appointment(s):08/15/2017 8:00 am - Harry Porter MD at Main Cgzazu2807/13/2017 - Harry Porter MDK62.89 Other specified diseases of anus and rectumNew Medication:Miralax 3350 NFComments:It is now seeming more like a severe thrombosed hemorrhoid. The extent of it seems too severe for surgical treatment in this office today.We will get him over to surgical associates today for further assessment.
--- OUTSIDE RECORDS SUMMARY | 2017-07-26 17:07 | XMS REPORT ---
:1955 External Reference #:[id number] Author Organization [facility] Address [address] [place] [address] Phone [phone] Care Team Providers Name Role Phone Jami Olvera M.D. Primary Care Physician Unavailable Payers Type Date Identification Numbers Payment Provider Subscriber Commercial Effective: Policy Number: Nia Terrell 2013 [id number] Expires: 2016 Group Name: BC/BS [employer] [place] [address] [address] PayID: [id number] MACI Molina 27923 Medigap Part B Effective: Policy Number: Nia Terrell 2010 [id number] Expires: 2013 Group Name: [employer] [address] [address] PayID: [id number] MACI Molina 88358 Medigap Part B Effective: Policy Number: Nia DONOVANISAÍAS Owencindy 2016 [id number] Group Name: [employer] [address] [address] PayID: [id number] MACI Molina 31000 Problems Description No Information Family History Date Family Member(s) Problem(s) Comments Father due to Cancer, Esophageal () Mother due to Cancer, Colon () Maternal Grandfather due to [place] () Social History Type Date Description Comments [...] 2016 ) mcg/Act every Dylon, every 4-6 CLEANING SUPERVISOR-C hours as needed wheezing/t ightness No Active 08/08/ Hx Unknown Medications 2017 - 2016 Doxycycline 08/08/ Hx Capsules 100mg 20caps 1 tab by J20.9 Lizzette Hyclate 2017 - mouth Dylon, 07/04/ twice a CLEANING SUPERVISOR-C 2018 day x 10 days Guaifenesin-Code 08/08/ Hx Syrup 100-10mg/5 240ml 1-2 J20.9 Lizzette ine 2017 - ML teaspoon Dylon, 07/04/ every 4-6 [employer]ANING SUPERVISOR-C 2018 hours as needed cough Amoxicillin/Clav 05/29/ Hx Tablets 875-125mg 20tabs 1 tablet 461.8 Lizzette silva 2012 - bid x 10 Dylon, Potassium 08/08/ days [employer]ANING SUPERVISOR-C 2016 Doxycycline 04/14/ Hx Capsules 100mg 2caps 2 po now 916.4 Shawnti Hyclate 2010 - for R. Storm, 08/08/ possible CLEANING SUPERVISOR-C 2017 lyme disease exposure Clarithromycin 03/13/ Hx Tablets 500mg 20tabs 1 po bid 486 Shawnti 2010 - for R. Daniel, 08/08/ pneumonia [employer]ANING SUPERVISOR-C 2017 Zithromax Z-Reji 09/01/ Hx Tablets 250mg 6tabs 2 po on 466.0 Donaldnti 2008 - day 1, 1 R. Storm, 09/11/ po on days CLEANING SUPERVISOR-C 2008 2-5 Proventil HFA 09/01/ Hx Aerosol 108mcg/Act 1units 2 puffs 466.0 Shawnti 2008 - q4h prn R. Storm, 08/08/ cough, CLEANING SUPERVISOR-C 2016 wheeze, shortness of breath Penicillin VK 05/08/ Hx Tablets 500mg 20tabs One PO bid 034.0 Tiera 2006 - For 10 A. 09/01/ Days Bc, 2009 F.N.P.C. Physical Therapy 02/14/ Hx Zaire 2004 - treat P. 09/01/ right hip Blegen, 2009 pain M.D. Immunizations CPT Code Status Date Vaccine Lot # [id number] Given 03/26/2017 Influenza Virus Vaccine, Quadrivalent, 3 Yr > Quad, Preserv Free Vital Signs Date Vital Result Comment 07/04/2017 Weight 268.00 lb Weight in kg's [...] Note Laboratory test 07/04/2017 Hepatitis C Genotype <pending> finding Comp Metabolic Panel 07/04/2017 Sodium 141 [...] Egfr Non- 67.6 >60 Egfr 86.9 >60 1 CBC Auto Diff 07/04/2017 White Blood Count [...] finding 02/09/2017 Surgical Interface SEE RESULT BELOW 2, 3 Order Urinalysis W/Microscopic 05/30/2013 Urine Color Yellow Urine Appearance Clear Urine Specific [place] 1.024 1.010-1.030 Urine Esterase Negative Negative Urine [...] Neg Urine Blood 50+ High Neg Specific [place] 1.025 High 1.01-1.02 Laboratory test finding 05/30/2013 Hemoglobin A1c 5.8 % Less than 6.0 4 Urine DIP 05/23/2013 Leukocytes NEG Neg Urine Nitrites NEG Neg Urine pH 5 5-6 Total Protein, Urine NEG Neg Urine Glucose NORM Norm Urine Ketones NEG Neg Urobilinogen NORM Norm Urine Bilirubin NEG Neg Urine Blood TRACE Neg Specific [place] 1.015 1.01-1.02 Comp Metabolic Panel 05/23/2013 Sodium [...] Egfr Non- 69.2 >60 Egfr 89.1 >60 5 CBC Auto Diff 05/23/2013 White Blood Count [...] Amplified Rna 05/23/2013 GC/Chlamydia Rna (SEE NOTE) 6 Urinalysis W/Microscopic 05/23/2013 Urine Color Yellow Urine Appearance Clear Urine Specific [place] 1.015 1.010-1.030 Urine Esterase Negative Negative Urine [...] Cholesterol 222 mg/dL High Less Than 200 7 Triglyceride 233 mg/dL High 40-200 High Density Lipoprotein 41 mg/dL 40-60 Low Density Lipoprotein 134 mg/dL High Less Than 100 8 Cholesterol/HDL Ratio 5.41 AVERAGE High 1-4.97 Comp Metabolic Panel 12/14/2004 Anion Gap 10.0 mmol/L 2-11 9 Albumin/Globulin Ratio 1.6 1-3 Albumin 4.3 GM/DL [...] NEG Neg Urine Blood NEG Neg 1 Because ethnic data is not always readily [...] 15-29 5 Kidney failure <15 (or dialysis) 2 [id number] 3 SEE RESULT BELOW Name: TYSON TERRELL : [address]: Elmer Romero MD Acct: [id number] Unit: [id number] AGE: 61 Location: [facility] Re02/09/17 SEX: M Status: DEP REF SPEC: [id number] PARISH: 02/09/[address] [facility] [address]: Elmer Romero MD REQ: [id number] RECD: 02/09/17 STATUS: JACKELINE RODRIGUEZ DR: Jami Olvera MD _ ORDERED: LEVEL 4 COMMENTS: [id number] FINAL DIAGNOSIS Colon, ascending, biopsy: -- Benign [...] performed at Main Lab DEPARTMENT OF PATHOLOGY, [address] [place] [address] Misael Butts M.D. Director [facility] # [id number] 4 Therapeutic target for the treatment of diabetes Mellitus patients is <7% HBA1C, and in selective patients <6.0%.Please refer to [place] Diabetes Association Diabetic care guidelines for further information. 5 Because ethnic data is not always readily [...] 15-29 5 Kidney failure <15 (or dialysis) 6 RUN DATE: 05/27/13 [facility] LAB LIVE PAGE 1 RUN TIME: [address] [place] [address] Specimen Inquiry Name: TYSON TERRELL : [address]: Lizzette Pate NP Acct: [id number] Unit: [id number] AGE: 57 Location: [facility] Re05/23/13 SEX: M Status: REG REF SPEC: [id number] PARISH: 05/23/13-[address]: Lizzette Pate ELECTRICAL CAD DESIGNER REQ: [id number] RECD: 05/23/13544 STATUS: COMP _ SOURCE: URINE SPDESC: ORDERED: Crispy Gamer/Chlam RNA QUERIES: Medent Number [id number] Procedure Result Verified Site Chlamydia Trachomatis RNA [...] ON NEXT PAGE * ML=Testing performed at [facility] Lab DEPARTMENT OF PATHOLOGY, [address] [place] [address] Miseal Butts M.D. Director [facility] Permit #[id number] RUN DATE: 05/27/13 [facility] LAB LIVE PAGE 2 RUN TIME: [address] [place] [address] Specimen Inquiry Patient: TYSON TERRELL [id number] (Continued) Specimen: [id number] Collected: 05/23/13-1155 Received: 05/23/13-1746 (Continued) Procedure Result [...] performed at Main Lab DEPARTMENT OF PATHOLOGY, [address] [place] [address] Misael Butts M.D. Director [facility] Permit #[id number] Classification: Borderline High . 8 CALCULATED LDL APPROXIMATES THE VALUE OF A DIRECT LDL MEASUREMENT. Classification: Borderline High . 9 Anion gap measurement may be of limited value in the presence of any alkalosis, especially in a combined acid base disorder. . Procedures Date CPT Code Description Status Comment 02/04/2010 Colonoscopy Completed diverticulosis, otherwise negative. 2004- colonoscopy with inflamed adenomatous polyp. 09/01/2008 47899 Nebulizer Treatment Completed Encounters Type Date Location Provider CPT E/M Dx Office Visit 08/08/2016 4:00p Main Office DANA Sewell 31655 J20.9 Office Visit 05/23/2013 11:30a Main Office DANA Sewell 39557 599.70 Office Visit 05/29/2012 4:00p Main Office DANA Sewell 48713 461.8 Office Visit 04/14/2011 2:15p Main Office DANA Morris 18638 916.4 Office Visit 03/13/2011 11:00a Main Office DANA Morris 27796 486 Office Visit 09/01/2008 11:30a Main Office DANA Morris 17177 466.0 Office Visit 05/08/2006 10:30a Main Office Tiera Yancey, 43820 034.0 F.N.P.C. Office Visit 12/13/2004 2:00p Main Office Jami Olvera M.D. 99306 V70.0 V17.3 V16.0 477.9 719.45 Office Visit 08/24/2004 1:00p Main Office Jami Olvera M.D. 67139 238.2 Plan of Care 07/04/2017 - Harry Porter MDB18.2 Chronic viral hepatitis CComments: Asymptomatic, chronic HCV discovered on donating blood. Will check genotype and refer to GI.Follow up:Refer to gastroenterology.
[2017-07-26 17:12] LABS: EGFR Non-African American 64.2 (>60)
--- NOTE | 2017-07-26 17:17 | RAD ---
HISTORY: Altered mental status, without finding difficulty COMPARISONS: None TECHNIQUE: Multiple contiguous axial CT scans were obtained of the head without intravenous contrast. FINDINGS: HEMORRHAGE/INFARCT: There is no hemorrhage or acute infarct. MASSES/SHIFT: There is no mass or shift. EXTRA-AXIAL SPACES: There are no extra-axial fluid collections. SULCI AND VENTRICLES: The sulci and ventricles are normal in size and position for the patient's stated age. CEREBRUM: There are no focal parenchymal abnormalities. BRAINSTEM: There are no focal parenchymal abnormalities. CEREBELLUM: There are no focal parenchymal abnormalities. VESSELS: The vessels are grossly normal. PARANASAL SINUSES: The paranasal sinuses are clear. ORBITS: The orbits are unremarkable. BONES AND SOFT TISSUE: No bone or soft tissue abnormalities are noted. OTHER: None IMPRESSION: NO ACUTE INTRACRANIAL PATHOLOGY.
--- NOTE | 2017-07-26 17:19 | RAD ---
HISTORY: Altered mental status COMPARISONS: None VIEWS: 4: Frontal dual-energy and lateral views of the chest. FINDINGS: CARDIOMEDIASTINAL SILHOUETTE: The cardiomediastinal silhouette is normal. TRISTAN: The tristan are normal. PLEURA: The costophrenic angles are sharp. No pleural abnormalities are noted. LUNG PARENCHYMA: The lungs are clear. ABDOMEN: The upper abdomen is clear. There is no subphrenic gas. BONES AND SOFT TISSUES: No bone or soft tissue abnormalities are noted. OTHER: None. IMPRESSION: NO ACTIVE CARDIOPULMONARY DISEASE.
[2017-07-26] MEDS ORDERED: Aspirin TAB* 325 MG PO ONE (17:56)
[2017-07-26] MEDS ORDERED: Iohexol 350* (CONTRAST) 500 ML MDV IV ONE (18:40)
--- NOTE | 2017-07-26 19:56 | RAD ---
HISTORY: Confusion, recent perianal abscess COMPARISONS: Head CT dated July 26, 2017 TECHNIQUE: Multiple contiguous axial CT scans were obtained of the head and neck after the administration of nonionic intravenous contrast timed to the systemic arterial phase of contrast enhancement. Coronal and sagittal multiplanar reformations are submitted for review. Multiple 3-D maximum intensity projection reconstructions are also submitted for review. FINDINGS: CTA NECK: AORTIC ARCH: There is a normal three-vessel branching pattern of the aortic arch. There is no ostial or proximal stenosis of the cephalic great vessels. RIGHT VERTEBRAL ARTERY: The right vertebral artery is patent along its course, without stenosis. LEFT VERTEBRAL ARTERY: The left vertebral artery is patent along its course, without stenosis. DOMINANCE: The vertebral arteries are codominant. RIGHT COMMON CAROTID ARTERY: The right common carotid artery is patent. The right carotid bifurcation occurs at C4-C5 RIGHT INTERNAL CAROTID ARTERY: There is no right internal carotid artery stenosis by NASCET criteria. RIGHT EXTERNAL CAROTID ARTERY: The right external carotid artery is unremarkable. LEFT COMMON CAROTID ARTERY: The left common carotid artery is patent. The left carotid bifurcation occurs at C3-C4 LEFT INTERNAL CAROTID ARTERY: There is no left internal carotid artery stenosis by NASCET criteria. LEFT EXTERNAL CAROTID ARTERY: The left external carotid artery is unremarkable. VENOUS CIRCULATION: The venous system is unremarkable. SALIVARY GLANDS: The parotid glands, submandibular glands, sublingual glands are normal. NASAL CAVITY/NASOPHARYNX: The nasal cavity and nasopharynx are normal. ORAL CAVITY/OROPHARYNX: The oral cavity is obscured by streak artifact from dental amalgam. The visualized oral cavity and oropharynx are unremarkable. LARYNGEAL APPARATUS/HYPOPHARYNX: The laryngeal apparatus and hypopharynx are normal. UPPER AIRWAY/UPPER ESOPHAGUS: The visualized upper airway and esophagus are normal. LUNG APICES: The lung apices are clear. THYROID GLAND: The thyroid gland is normal. LYMPH NODES: There is no lymphadenopathy by size criteria. BONES AND SOFT TISSUES: Degenerative changes are noted of the spine. CTA HEAD: INTRACRANIAL CIRCULATION: There is no aneurysm, vascular malformation, occlusion, or stenosis of the visualized intracranial circulation. The anterior communicating artery complex is clear. Bilateral posterior communicating arteries are identified. VENOUS CIRCULATION: The venous system is unremarkable. PERFUSION: There is no obvious parenchymal perfusion deficit. HEMORRHAGE/INFARCT: There is no hemorrhage or acute infarct. MASSES/SHIFT: There is no mass or shift. EXTRA-AXIAL SPACES: There are no extra-axial fluid collections. SULCI AND VENTRICLES: The sulci and ventricles are normal in size and position for the patient's stated age. CEREBRUM: There are no focal parenchymal abnormalities. BRAINSTEM: There are no focal parenchymal abnormalities. CEREBELLUM: There are no focal parenchymal abnormalities. PARANASAL SINUSES: The paranasal sinuses are clear. ORBITS: The orbits are unremarkable. BONES AND SOFT TISSUE: No bone or soft tissue abnormalities are noted. OTHER: There is no abnormal enhancement. IMPRESSION: 1. NO INTERNAL CAROTID ARTERY STENOSIS BY NASCET CRITERIA. 2. NO ANEURYSM, VASCULAR MALFORMATION, OCCLUSION, OR STENOSIS OF THE VISUALIZED INTRACRANIAL CIRCULATION.. CPT II Codes: 3100F
--- NOTE | 2017-07-26 20:03 | RAD ---
CLINICAL HISTORY: Confusion, recent perianal abscess COMPARISON: None TECHNIQUE: Multiple contiguous axial CT scans were obtained of the abdomen and pelvis after the administration of intravenous contrast. Coronal and sagittal multiplanar reformations are submitted for review. Oral contrast was not administered. FINDINGS: Evaluation limited by suboptimal contrast opacification. LUNG BASES: The lung bases are clear. LIVER: The liver is normal in shape, size, contour, and attenuation. BILE DUCTS: There is no intrahepatic or extrahepatic biliary dilatation. GALLBLADDER: The gallbladder is normal, without pericholecystic inflammatory change. PANCREAS: The pancreas is normal, without mass or ductal dilatation. SPLEEN: Normal in size and appearance. UPPER GI TRACT: Evaluation of the gastrointestinal tract is limited by incomplete gastric distention. The upper GI tract is unremarkable. SMALL BOWEL AND MESENTERY: The small bowel is normal in contour, course, and caliber. There is no obstruction or dilatation. COLON: There is extensive diverticulosis of the descending and sigmoid colon. There is a small amount of perirenal gas density without appreciable loculated fluid collection. ADRENALS: Normal bilaterally. KIDNEYS: The kidneys are normal in shape, size, contour, and axis. There is no hydronephrosis or nephrolithiasis. BLADDER: The bladder is smooth in contour. PELVIC ORGANS: The prostate gland is normal. The seminal vesicles are symmetric. AORTA: The aorta is normal. IVC: Unremarkable LYMPH NODES: There is no lymphadenopathy by size criteria. ABDOMINAL WALL: There is a small fat-containing inguinal hernia. BONES AND SOFT TISSUES: There are mild diffuse degenerative changes. OTHER: None IMPRESSION: 1. DIVERTICULOSIS. 2. THERE IS PERIANAL GAS DENSITY. GIVEN THE HISTORY OF PERIANAL ABSCESS, THIS MAY REFLECT THE SEQUELA OF PERIANAL ABSCESS INCISION AND DRAINAGE. RECOMMEND CORRELATION WITH ANY HISTORY OF RECENT INSTRUMENTATION. THERE IS NO DEFINITE LOCULATED FLUID COLLECTION TO SUGGEST RESIDUAL ABSCESS. 3. SMALL FAT CONTAINING LEFT INGUINAL HERNIA.
[2017-07-26] MEDS ORDERED: Al Hydrox/Mg Hydrox/Simet LIQ* 30 ML UDC PO PRN (20:41)
[2017-07-26] MEDS ORDERED: Ondansetron INJ* 2 MG/ML VIAL IV PRN (20:41)
[2017-07-26] MEDS ORDERED: Acetaminophen TAB* 325 MG PO PRN (20:41)
[2017-07-26] MEDS ORDERED: Senna TAB PO PRN (20:41)
[2017-07-26] MEDS ORDERED: Docusate CAP* 100 MG PO PRN (20:41)
[2017-07-26 22:03] LABS: Urine Appearance Clear; Urine Blood Negative (Negative); Urine Color Straw; Urine Ketones Negative (Negative); Urine Protein Negative (Negative); Urine Specific Gravity 1.021 (1.010-1.030); Urine Urobilinogen Negative (Negative)
--- NOTE | 2017-07-26 22:05 | RAD ---
HISTORY: Altered mental status COMPARISONS: PET CT dated July 26, 2017 TECHNIQUE: The following sequences were obtained of the head: Sagittal T1-weighted images, axial T2-weighted images, axial FLAIR images, axial susceptibility weighted images, axial T1-weighted images. Additionally, axial diffusion-weighted images were obtained with calculated apparent diffusion coefficients. FINDINGS: HEMORRHAGE/INFARCT: There is no hemorrhage or acute infarct. MASSES/SHIFT: There is no mass or shift. EXTRA-AXIAL SPACES/MENINGES: There are no extra-axial fluid collections. SULCI AND VENTRICLES: The sulci and ventricles are normal in size and position for the patient's stated age. CEREBRUM: There are no focal parenchymal abnormalities. BRAINSTEM: There are no focal parenchymal abnormalities. CEREBELLUM: There are no focal parenchymal abnormalities. The cerebellar tonsils are normal in size and position. SELLA: The sella is normal. PINEAL: The pineal region is clear. CP ANGLE/TEMPORAL BONES: The labyrinthine structures are grossly normal. VESSELS: Normal flow-voids are noted within the visualized vertebral vasculature. DIFFUSION ABNORMALITIES: There are no diffusion abnormalities. PARANASAL SINUSES/MASTOIDS: There is mucosal thickening of ethmoid air cells and right maxillary sinus. There is no air-fluid level. ORBITS: The orbits are unremarkable. BONES AND SOFT TISSUE: No bone or soft tissue abnormalities are noted. OTHER: None IMPRESSION: UNREMARKABLE MRI OF THE BRAIN. THERE IS NO RESTRICTED DIFFUSION TO SUGGEST ACUTE INFARCT.
--- NOTE | 2017-07-26 22:25 | ED ---
Curtis Zuniga Jennifer, scribed for Markel King MD on 07/26/17 at 1627 . Altered Mental Status - HPI Summary HPI Summary: The patient is a 61 year old male who was sent by Dr. Rankin for evaluation of AMS today. The patients states that two days ago, he began to feel achy and there was some discharge from his rectum due to an anal abscess. She states that he was chilly, having word-finding difficulty last night, some confusion, and was uncharacteristically complacent and mellow. The patient adds that he was feeling well two days ago and denies any pain. The patient denies fevers. The adds that he took some Motrin today. LEVEL 5 CAVEAT: HPI LIMITED DUE TO PATIENT CONFUSION. - History Of Current Complaint Chief Complaint: EDAltMentalStatus Stated Complaint: ABSCESS/CONFUSED Time Seen by Provider: 07/26/17 16:19 Hx Obtained From: Patient, Family/Extract Mixer - Onset/Duration: Still Present, Suddenly - Last night Timing: Constant Severity Initially: Mild Severity Currently: Mild Character: Confusion Aggravating Factor(s): Nothing Alleviating Factor(s): Nothing Associated Signs And Symptoms: Negative: Fever - Allergies/Home Medications Allergies/Adverse Reactions: Allergies Allergy/AdvReac Type Severity Reaction Status Date / Time No Known Allergies Allergy Verified 02/06/17 13:42 PMH/Surg Hx/FS Hx/Imm Hx Infectious Disease History: No Infectious Disease History: Denies: Traveled Outside the [place] in Last 30 Days - Additional Comments History Additional Comments: LEVEL 5 CAVEAT: PAST MEDICAL HISTORY LIMITED DUE TO PATIENT CONFUSION. Review of Systems Positive: Chills. Negative: Fever Eyes: Negative ENT: Negative Cardiovascular: Negative Respiratory: Negative Gastrointestinal: Negative Genitourinary: Other - RECENT PERIANAL ABSCESS DRAINAGE BY SURGERY Musculoskeletal: Negative Skin: Negative Neurological: Other - Difficulty finding words, confusion, uncharacteristic Psychological: Normal All Other Systems Reviewed And Are Negative: Yes - Comments Additional Review of Systems Comments: LEVEL 5 CAVEAT: ROS LIMITED DUE TO PATIENT CONFUSION. Physical Exam - Summary Physical Exam Summary: General: well-appearing, no pain distress Skin: warm, color reflects adequate perfusion, dry Head: normal Eyes: EOMI, ALVIN ENT: normal Neck: supple, nontender Respiratory: CTA, breath sounds present Cardiovascular: RRR Abdomen: soft, nontender Bowel: present Musculoskeletal: normal, strength/ROM intact Neurological: normal, sensory/motor intact, A&O x3 Psychological: affect/mood appropriate LEVEL 5 CAVEAT: PHYSICAL EXAM LIMITED DUE TO PATIENT CONFUSION. Triage Information Reviewed: Yes Vital Signs On Initial Exam: Initial Vitals Temp Pulse Resp BP Pulse Ox 98.7 F 77 18 158/66 96 07/26/17 15:58 07/26/17 15:58 07/26/17 15:58 07/26/17 15:58 07/26/17 15:58 Vital Signs Reviewed: Yes Abdomen Description: Positive: Other: - PERIANAL AREA WITHOUT SWELLING OR ERYTHEMA. NO DRAINAGE. NON TENDER TO PALPATION. Diagnostics - Vital Signs Vital Signs Temp Pulse Resp BP Pulse Ox 07/26/17 15:58 98.7 F 77 18 158/66 96 - Laboratory Lab Results: Lab Results 07/26/17 07/26/17 07/26/17 Range/Units 16:39 16:39 16:39 WBC (3.5-10.8) 10^3/ul RBC (4.0-5.4) 10^6/ul Hgb (14.0-18.0) g/dl Hct (42-52) % MCV (80-94) fL MCH (27-31) pg MCHC (31-36) g/dl RDW (10.5-15) % Plt Count (150-450) 10^3/ul MPV (7.4-10.4) um3 Neut % (Auto) (38-83) % Lymph % (Auto) (25-47) % Castro % (Auto) (0-7) % Eos % (Auto) (0-6) % Baso % (Auto) (0-2) % Absolute Neuts (auto) (1.5-7.7) 10^3/ul Absolute Lymphs (auto) (1.0-4.8) 10^3/ul Absolute Monos (auto) (0-0.8) 10^3/ul Absolute Eos (auto) (0-0.6) 10^3/ul Absolute Basos (auto) (0-0.2) 10^3/ul Absolute Nucleated RBC 10^3/ul Nucleated RBC % INR (Anticoag Therapy) 1.04 H (0.77-1.02) APTT 31.4 (26.0-36.3) seconds Sodium 138 (133-145) mmol/L Potassium 4.0 (3.5-5.0) mmol/L Chloride 105 (101-111) mmol/L Carbon Dioxide 26 (22-32) mmol/L Anion Gap 7 (2-11) mmol/L BUN 15 (6-24) mg/dL Creatinine 1.16 (0.67-1.17) mg/dL Est GFR ( Amer) 82.6 (>60) Est GFR (Non-Af Amer) 64.2 (>60) BUN/Creatinine Ratio 12.9 (8-20) Glucose 93 (70-100) mg/dL Lactic Acid (0.5-2.0) mmol/L Calcium 9.2 (8.6-10.3) mg/dL Magnesium 2.1 (1.9-2.7) mg/dL Total Bilirubin 0.30 (0.2-1.0) mg/dL AST 14 (13-39) U/L ALT 16 (7-52) U/L Alkaline Phosphatase 50 (34-104) U/L Ammonia 41 (16-53) mol/L Total Creatine Kinase 92 (10-223) U/L CK-MB (CK-2) 2.2 (0.6-6.3) ng/mL Troponin I 0.00 (<0.04) ng/mL C-Reactive Protein 5.76 H (< 5.00) mg/L B-Natriuretic Peptide 15 ( - 100) pg/mL Total Protein 7.4 (6.4-8.9) g/dL Albumin 3.9 (3.2-5.2) g/dL Globulin 3.5 (2-4) g/dL Albumin/Globulin Ratio 1.1 (1-3) Lipase 53 (11.0-82.0) U/L TSH 1.09 (0.34-5.60) mcIU/mL Acetaminophen < 15 mcg/mL Serum Alcohol < 10 (<10) mg/dL 07/26/17 07/26/17 Range/Units 16:39 16:39 WBC 7.5 (3.5-10.8) 10^3/ul RBC 4.94 (4.0-5.4) 10^6/ul Hgb 13.4 L (14.0-18.0) g/dl Hct 40 L (42-52) % MCV 81 (80-94) fL MCH 27 (27-31) pg MCHC 34 (31-36) g/dl RDW 14 (10.5-15) % Plt Count 306 (150-450) 10^3/ul MPV 8.3 (7.4-10.4) um3 Neut % (Auto) 59.3 (38-83) % Lymph % (Auto) 30.5 (25-47) % Castro % (Auto) 6.8 (0-7) % Eos % (Auto) 2.3 (0-6) % Baso % (Auto) 1.1 (0-2) % Absolute Neuts (auto) 4.5 (1.5-7.7) 10^3/ul Absolute Lymphs (auto) 2.3 (1.0-4.8) 10^3/ul Absolute Monos (auto) 0.5 (0-0.8) 10^3/ul Absolute Eos (auto) 0.2 (0-0.6) 10^3/ul Absolute Basos (auto) 0.1 (0-0.2) 10^3/ul Absolute Nucleated RBC 0 10^3/ul Nucleated RBC % 0.2 INR (Anticoag Therapy) (0.77-1.02) APTT (26.0-36.3) seconds Sodium (133-145) mmol/L Potassium (3.5-5.0) mmol/L Chloride (101-111) mmol/L Carbon Dioxide (22-32) mmol/L Anion Gap (2-11) mmol/L BUN (6-24) mg/dL Creatinine (0.67-1.17) mg/dL Est GFR ( Amer) (>60) Est GFR (Non-Af Amer) (>60) BUN/Creatinine Ratio (8-20) Glucose (70-100) mg/dL Lactic Acid 1.0 (0.5-2.0) mmol/L Calcium (8.6-10.3) mg/dL Magnesium (1.9-2.7) mg/dL Total Bilirubin (0.2-1.0) mg/dL AST (13-39) U/L ALT (7-52) U/L Alkaline Phosphatase (34-104) U/L Ammonia (16-53) mol/L Total Creatine Kinase (10-223) U/L CK-MB (CK-2) (0.6-6.3) ng/mL Troponin I (<0.04) ng/mL C-Reactive Protein (< 5.00) mg/L B-Natriuretic Peptide ( - 100) pg/mL Total Protein (6.4-8.9) g/dL Albumin (3.2-5.2) g/dL Globulin (2-4) g/dL Albumin/Globulin Ratio (1-3) Lipase (11.0-82.0) U/L TSH (0.34-5.60) mcIU/mL Acetaminophen mcg/mL Serum Alcohol (<10) mg/dL Result Diagrams: 07/26/17 16:39 07/26/17 16:39 Lab Statement: Any lab studies that have been ordered have been reviewed, and results considered in the medical decision making process. - Radiology CXR Xray Interpretation: No Acute Changes - NO ACTIVE CARDIOPULMONARY DISEASE. Dr. King has reviewed this report. Radiology Interpretation Completed By: Radiologist - CT Brain CT CT Interpretation: No Acute Changes - NO ACUTE INTRACRANIAL PATHOLOGY. Dr. King has reviewed this report. CT Interpretation Completed By: Radiologist Head CTA CT Interpretation: No Acute Changes - 1. NO INTERNAL CAROTID ARTERY STENOSIS BY NASCET CRITERIA. 2. NO ANEURYSM, VASCULAR MALFORMATION, OCCLUSION, OR STENOSIS OF THE VISUALIZED INTRACRANIAL CIRCULATION.. CPT II Codes: 3100F. Dr. King has reviewed this report. CT Interpretation Completed By: Radiologist Abd/Pel CT CT Interpretation: Positive (See Comments) - 1. DIVERTICULOSIS. 2. THERE IS PERIANAL GAS DENSITY. GIVEN THE HISTORY OF PERIANAL ABSCESS, THIS MAY REFLECT THE SEQUELA OF PERIANAL ABSCESS INCISION AND DRAINAGE. RECOMMEND CORRELATION WITH ANY HISTORY OF RECENT INSTRUMENTATION. THERE IS NO DEFINITE LOCULATED FLUID COLLECTION TO SUGGEST RESIDUAL ABSCESS. 3. SMALL FAT CONTAINING LEFT INGUINAL HERNIA. Dr. King has reviewed this report. CT Interpretation Completed By: Radiologist - EKG 17:51 Cardiac Rate: NL EKG Rhythm: Sinus Rhythm - [address] Segment: Normal Ectopy: None Altered Mental Statu Course/Dx - Course Course Of Treatment: Medications reviewed. BP noted and advised to follow up with PCP. DISCUSSED WITH DR VERONICA. PATIENT HAS HAD IMPROVEMENT IN ED BUT, IS STILL HAVING SOME DIFFICULTY WITH WORD RECALL. ANAL WOUND IS NOT ERYTHEMATOUS, THERE IS NO DRAINAGE. NO FEVER, NL WBC COUNT. DISCUSSED WITH DR CABRERA, HOSPITALIST. ADMIT HOSPITALIST. - Diagnoses Provider Diagnoses: Elevated BP without diagnosis of hypertension, Confusion, Difficulty with speech - Provider Notifications Discussed Care Of Patient With: Mariela Cabrera Time Discussed With Above Provider: 20:30 Instructed by Provider To: Admit As Inpatient Discharge - Sign-Out/Discharge Documenting (check all that apply): Discharge - ADMIT - Discharge Plan Condition: Stable Disposition: ADMITTED TO [facility] - Billing Disposition and Condition Condition: STABLE Disposition: [facility] [place] The documentation as recorded by the Curtis ferrara Jennifer accurately reflects the service I personally performed and the decisions made by me, Markel King MD.
--- NOTE | 2017-07-26 23:10 | HP ---
CC: Harry Porter MD * HISTORY AND PHYSICAL: DATE OF ADMISSION: 07/26/17 TIME OF EVALUATION: 1999. CHIEF COMPLAINT: Altered mental status. HISTORY OF PRESENT ILLNESS: This is a 61-year-old male with unremarkable past medical history who presents to the emergency room after being triaged at the outpatient surgery office for followup of his perianal rectal abscess for altered mental status. The history was obtained by the , Jami, who is also the healthcare proxy. She states about 2 weeks ago, he had significant perianal abscess. He had it lanced on the and was started on Augmentin and he was significantly getting better. He was doing well and then on the , he has developed more body aches, generalized, was concern he was either getting the flu or return of his perirectal abscess was coming back. When the came home on 07/25/17 from work, he was sleeping on a couch, sounds like he came home early and he seemed out of it. He took some Motrin and the following morning, this morning, he was very quiet and withdrawn. She was very concerned about this perirectal abscess. They called the surgery service and they brought him there. The nurse that was triaging was concerned that he was not acting like his usual self and sent him to the emergency room. The patient is able to say that he has pain all over. He also states he has some abdominal discomfort. He is not able to articulate what kind of discomfort it is. He denies any vision changes. No posterior neck tenderness. Otherwise, review of systems is limited due to the patient's aphasia. In the emergency room, the patient had labs, imaging, given 2 L of fluid and referred to the hospitalist service for further evaluation. PAST MEDICAL HISTORY: Recent perianal abscess, status post I and D and antibiotics. MEDICATIONS: Motrin and NyQuil as needed. ALLERGIES: No known drug allergies. FAMILY HISTORY: Father from colon cancer and liver failure. Mother from colon cancer. 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 He lives with his , Jami, who is his healthcare proxy. He has 2 grown children. He quit smoking 30 years ago. No alcohol or illicit drug use. Code status: Full code. As mentioned, his is his healthcare proxy. REVIEW OF SYSTEMS: Limited due to the patient's expressive aphasia. PHYSICAL EXAMINATION GENERAL: No acute distress, resting comfortably with his at the bedside. VITAL SIGNS: Temp 98.7, pulse rate 77, respiratory rate 18, oxygen saturation 96 % on room air, blood pressure 158/66. HEENT: Head, normocephalic. Pupils equal and reactive, anicteric. Extraocular muscles intact. Oropharynx, mucous membranes moist. No erythema or exudate. NECK: Supple. No nuchal rigidity. RESPIRATORY: Clear to auscultation. No wheezing, rhonchi, or rales. CARDIAC: Regular rate and rhythm. Soft systolic murmur heard throughout. ABDOMEN: Soft, nontender, nondistended. EXTREMITIES: No clubbing, cyanosis, or edema. +2 DPs. NEUROLOGIC: Patient is alert and oriented x3. He is able to tell me his name, the date, and where he is. He is able to say no ____ able to have a conversation with me. He has challenge with recall of information. He has a hard time naming his dogs. He cannot say what we had breakfast. When he tries to pronounce the word salami he does not pronounce it right and begins to start laughing. Negative pronator drift. Upper and lower muscle strength normal and equal. : Per Dr. Bishop's exam - (patient still in hallway during my encounter) mild erythema, no findings of drainage or an abscess LABORATORY DATA: White count 7.5, hemoglobin 13.4, hematocrit 40, platelets 306. INR is 1.04. Sodium 138, potassium 4, chloride 105, bicarb 26, BUN 15, creatinine 1.16. CRP is 5.76. Troponin is 0. TSH is 1.09. Toxicology: Serum alcohol less than 10, acetaminophen less than 15. RADIOGRAPHIC DATA: Head CT: No acute intracranial pathology. No active cardiopulmonary disease. EKG: Normal sinus rhythm, prolonged SC interval, first- degree heart block. Abdomen and pelvis CT, diverticulosis. There is perianal gas density given history of perianal abscess. This may reflect the sequelae of perianal abscess incision and drainage. Recommend correlation with any history of recent instrumentation. There is no definite loculated fluid collection to suggest residual abscess. Small fat containing left inguinal hernia. Head CTA: No internal carotid artery stenosis. No aneurysm, vascular malformation, occlusion, or stenosis. ASSESSMENT: This is a 61-year-old male with unremarkable past medical history who presents to the emergency room with 2 days of altered mental status mainly with difficulty with word finding and recall of short-term memory. 1. Altered mental status. Assessment: Focus is mainly on his speech with recall of information. He is able to carry out a conversation if he is not recalling information. He does have a hard time articulating words, though nonfocal exam, lab and imaging are unremarkable. I spoke with Dr. Guzman regarding differential including seizure , transient global amnesia, stroke, and possibility of an immunodeficiency workup if his initial workup is negative. Plan: We will admit him for observation. Put him on telemetry. MRI with and without contrast. Check a lipid panel. Repeat his labs in the morning. EEG. We will also have Speech Therapy evaluate him as well. We will place in a nursing bedside swallow first and then put him on a heart healthy diet if he passes and continue him on a baby aspirin. 2. FEN. As mentioned, nursing bedside swallow and then heart healthy diet. 3. DVT prophylaxis. Patient scores moderate risk; heparin subcu t.i.d. 4. Code status. Full code. PATIENT TIME: Greater than 60 minutes spent going the history and physical, greater than half time was spent in direct patient contact. [id number]/CPS #: [id number] CHIKIS
[2017-07-27] MEDS: Heparin VIAL(*) 5000 UNITS/ML VIAL (FIVE THOUSAND) SUBCUT SCH ×3 (01:20→14:19)
[2017-07-27 05:11] LABS: ABS Basophils 0.1 10^3/ul (0-0.2); ABS Eosinophils 0.2 10^3/ul (0-0.6); ABS Lymphocytes 2.5 10^3/ul (1.0-4.8); ABS Monocytes 0.4 10^3/ul (0-0.8); ABS Neutrophils 4.6 10^3/ul (1.5-7.7); ABS Nucleated RBC 0 10^3/ul; Eosinophil % 2.3 % (0-6); Hematocrit 37 % (42-52); Hemoglobin 12.3 g/dl (14.0-18.0); Lymphocyte % 32.1 % (25-47); Mean Corpuscular HGB Conc 33 g/dl (31-36); Mean Corpuscular Hemoglobin 27 pg (27-31); Mean Corpuscular Volume 81 fL (80-94); Mean Platelet Volume 8.4 um3 (7.4-10.4); Nucleated Red Blood Cells % 0; Platelet Count 277 10^3/ul (150-450); Red Blood Count 4.58 10^6/ul (4.0-5.4); Red Cell Distribution Width 14 % (10.5-15); White Blood Count 7.7 10^3/ul (3.5-10.8)
[2017-07-27 05:20] LABS: EGFR Non-African American 74.5 (>60)
[2017-07-27] MEDS ORDERED: Aspirin EC Low Dose* 81 MG TAB.EC PO SCH (09:00)
--- NOTE | 2017-07-27 09:28 | PN ---
Subjective Date of Service: 07/27/17 Interval History: Ms. Terrell says that he feels tired but denies other complaint. He and his family feel that his speech difficulties and memory issues are improving significantly. He denies chest pain, SOB, nausea, or abdominal pain. He denies headache or vision change. Objective Active Medications: Acetaminophen (Tylenol Tab*) 650 mg PO Q4H PRN Al Hydrox/Mg Hydrox/Simethicone (Maalox Plus*) 30 ml PO Q6H PRN Aspirin (Aspirin Ec Low Dose*) 81 mg PO DAILY TIEN Docusate Sodium (Colace Cap*) 100 mg PO BID PRN Heparin Sodium (Porcine) (Heparin Vial(*)) 5,000 units SUBCUT Q8HR TIEN Ondansetron HCl (Zofran Inj*) 4 mg IV Q4H PRN Senna (Senokot Tab*) 1 tab PO BID PRN Vital Signs: Temp Pulse Resp BP Pulse Ox 98.4 F 74 16 143/73 95 07/27/17 07:42 07/27/17 07:42 07/27/17 07:42 07/27/17 07:42 07/27/17 07:42 Oxygen Devices in Use Now: None Result Diagrams: 07/27/17 04:52 07/27/17 04:52 Additional Lab and Data: . Assess/Plan/Problems-Billing Assessment: Mr. Terrell is a 61 yo male with PMH significant only for recent dee-rectal abscess who was admitted on 07/26/17 with altered mental status with slow speech and some memory impairment of unclear etiology. - Patient Problems (1) Altered mental status Comment: - Resolving. - MRI brain negative. EEG negative. No evidence of infection or electrolyte abnormalities. - Appreciate consultation from neurology. Based on Dr. Guzman's exam (who saw him last night as well) suspect small CVA with expressive aphasia despite negative MRI. Based on time course other etiologies like autoimmune etc are much less likely. - Continue care for CVA including aspirin, atorvasting. Echo pending. No evidence of arrhythmmia on telemetry, will need loop recorder outpatient. (2) Dee-rectal abscess Comment: - S/p ID outpatient without evidence of persistent abscess on CT abd/pelvis. - No leukocytosis, CRP normal. (3) Apnea Comment: - Patient will need outpatient sleep study. (4) DVT prophylaxis (5) Full code status Comment:
[2017-07-27] MEDS ORDERED: Thiamine IV 100 MG, Folic Acid IV* 1 MG, Multiple Vitamin IV ADULT* 10 ML in D5NS 0.9% ... IV ONE (10:30)
--- NOTE | 2017-07-27 14:36 | CONS ---
NEUROLOGY CONSULTATION: DATE OF CONSULT: 07/27/17 LOCATION: He is inpatient in room 433. REFERRING PROVIDER: Dr. Buitrago. PRIMARY CARE PHYSICIAN: Dr. Porter. CHIEF COMPLAINT: Altered mental status. HISTORY OF PRESENT ILLNESS: Nima Terrell is a 61-year-old right-handed man who was admitted yesterday with a change in mental status. About 3 weeks ago, he developed rectal pain and within about a week, was diagnosed with a rectal abscess which was drained. He continued with a lot of pain and was not eating well and was taking laxatives and enemas. He lost about 15 pounds in the last 3 weeks. Yesterday or perhaps the day before, he seemed to be much more sleepy than he usually is. He slept from 3 in the afternoon until late at night and also late the next morning. Subsequently, yesterday late morning, he seemed to be very confused and difficulty coming up with words. He could not come up with common words and he seemed disoriented at times. He was seen by the surgical service and they referred him to the emergency room. In the emergency room, he continued to be confused and had word finding difficulties. On Dr. Buitrago's examination, he was oriented, but had difficulty maintaining a conversation. He could not recall the name of his pet dogs at home, what he had for breakfast, and could not pronounce certain words. The rest of his examination was unremarkable. Today he is considerably better, but not back to his normal according to his and son who are present. He still has difficulty coming up with words at times. He recalls the events of yesterday and that he was having problems coming up with words and that he was perhaps a bit disoriented. He has a mild headache. He has not had any shortness of breath, chest pain, or fevers. He was treated with Augmentin for his abscess postoperatively and that is the only antibiotic he was on. Other than [id number] laxatives and albuterol, he was not on any other medications. He has not taken alcohol in about 10 years. They were having work done in his house this past week including sanding and then varnishing of floors. He remained physically active, cutting wood and they burn wood at home. There were no other known toxin exposures. PAST MEDICAL HISTORY: Generally notable for excellent health. He has asthma. He had the rectal abscess recently. MEDICATIONS AT HOME: Consist only of albuterol p.r.n., no other medications on a regular basis. ALLERGIES: He does not have any drug allergies. FAMILY HISTORY: Notable for father diagnosed with cirrhosis and colon cancer. SOCIAL HISTORY: He lives at home with his . 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 He quit drinking 10 years ago and quit smoking 30 years ago. REVIEW OF SYSTEMS: Notable for the dull headache, no change in vision, although he uses reading glasses, no abdominal pain, excessive pain, or shortness of breath. He has felt steady on his feet and he has not had any falls. There is no history of seizures. There were no episodes of unresponsiveness according to his , although at times he would seem to be staring at the ceiling. He would always respond when spoken to. He has lost 15 pounds in the last 3 weeks. No numbness or pain in his limbs. PHYSICAL EXAMINATION: He is well nourished and well hydrated. He has been afebrile throughout his hospital stay. Blood pressure is running about 140/80 to 160/90, heart rate in the 70s, respirations 18. Oxygen saturation is 96% on room air. Heart is in a regular rhythm without murmurs heard. There are no cervical bruits. Neck is supple. Skin is warm and dry. Oral mucosa is moist and atraumatic. Neurological Exam: Pupils react equally from about 3 to 2 mm. Eye movements and visual lowry are normal. Funduscopic exam revealed sharp discs bilaterally. The facial musculature is symmetric. Facial sensation to light touch and pin is symmetric. Speech is clear. Palate rises symmetrically and tongue protrudes in the midline. Hearing is intact and neck strength seems normal. Motor exam reveals normal muscle tone in the limbs proximally and distally and normal muscle strength proximally and distally. There is no pronator drift. Sensory exam is notable for intact to light touch and pin discrimination. He has a markedly decreased vibratory sense in the toes. Proprioceptive responses are sluggish with a few inaccuracies. Reflexes are trace in the upper extremities and knees and elicited in the ankles only with reinforcement maneuver. Plantars are flexor bilaterally. Gait is a little wide based, but independent. Romberg's sign is absent. Mental status finds him to be alert. He is oriented to place and time other than not knowing the calender date. He does struggle coming up with the year and the month. He is able to recall 3/3 items after several minutes with the exception of saying "copper kaleb" to the item "kaleb." He has great difficulty with serial 7s, which his family says is highly unlike him. He is unable to spell the word world backwards. He has occasional word finding difficulty. He is able to read a paragraph fluently from the newspaper, but is not able to give a coherent description of what he read. LABORATORY DATA: Includes an MRI of the brain, which I reviewed the images of and is interpreted as normal. Other laboratory data is notable for normal CBC other than the hemoglobin of 12.3, toxicology on admission negative for alcohol or acetaminophen, urinalysis unremarkable. Chemistry is notable for a C-reactive protein of 5.76, but otherwise completely normal chemistry profile. Ammonia level yesterday was normal at 41. Cholesterol 144, LDL 90. TSH on admission normal at 1.09. INR borderline elevated at 1.04 and PTT is within normal limits. IMPRESSION: Impression is that of subacute encephalopathy mainly affecting attention, concentration, and some word finding. Etiology is not clear. Toxic or metabolic would seem to lead the list, but the only exposures he had were to wood and varnish dust and possibly varnish fumes. He also lost 15 pounds and so a nutritional deficiency is a possibility. I do not see signs of an infection at this point in time. I should note he did have a varicella immunization within the last 3 weeks. Written orders for vitamin levels including B12, B6, and thiamine to be followed by beltran denny. Written orders also for sedimentation rate, CELENA, serum protein electrophoresis and Lyme disease as he also shows evidence of a peripheral neuropathy on exam. I have also written for a serum lead level. He has an EEG pending. If the lab test and EEG do not reveal an etiology, I would recommend a lumbar puncture to look for evidence of a viral infection or immune mediated process. I will sign out his case to Dr. Guzman who will be on for the rest of the day to follow up. [id number]/[facility] #: [id number] [facility]ENTER[facility]ly
[2017-07-27] MEDS ORDERED: Atorvastatin* 20 MG TAB PO SCH (17:00)
[2017-07-27 17:06] VITALS: BP 141/76
--- NOTE | 2017-07-27 17:09 | ECHO ---
Patient: TYSON ARGUELLO [facility] Rec#: [id number] : 1955 Date: 07/27/2017 Age: 61y Height: 183 cm / 72.0 in Weight: 114 kg / 251.3 lbs Sex: M BSA: 2.35 Room#: 433 Admit Date#: 07/26/2017 Type: Inpatient Referring: Kiana Valle NP Reading: Fareed Baeza MD Circulation Crew Leader: Lizzette Galvez,KERENCS,RDMS CC: Harry Porter Transthoracic Echocardiogram Indication: TIA BP: 143/73 HR: 74 Rhythm: NSR Findings History: AMS Technical Comments: The study quality is good. Left Ventricle: The left ventricular chamber size is mildly dilated. Mild concentric left ventricular hypertrophy is observed. The estimated ejection fraction is 55-60%. Abnormal left ventricular diastolic filling is observed, consistent with impaired relaxation. Left Atrium: The left atrium is slightly dilated. Right Ventricle: The right ventricular chamber size and systolic function are within normal limits. Right Atrium: The right atrial cavity size is normal. The bubble study is negative. A patent foramen ovale is not demonstrated with color Doppler and agitated contrast. Aortic Valve: The aortic valve is trileaflet. Systolic excursion of the aortic valve is normal. There is a trace of aortic regurgitation. There is no evidence of aortic stenosis. Mitral Valve: The mitral valve leaflets appear normal. There is mild mitral valve prolapse. There is prolapse of the anterior leaflet of the mitral valve. There is a trace of mitral regurgitation. There is no evidence of mitral stenosis. Tricuspid Valve: The tricuspid valve leaflets are normal. There is trace tricuspid regurgitation. Unable to estimate the right ventricular systolic pressure. Pulmonic Valve: The pulmonic valve structure is not well visualized. There is a trace pulmonic regurgitation. Pericardium: There is no significant pericardial effusion. Aorta: There is no dilatation of the ascending aorta. There is no dilatation of the aortic arch. There is mild dilatation of the aortic root. Pulmonary Artery: The main pulmonary artery is not well visualized. Venous: The inferior vena cava appears normal in size. There is a greater than 50% respiratory change in the inferior vena cava dimension. Contrast: Intravenous agitated saline contrast was used to assess intracardiac shunting. Images 46 and 47 Conclusions The left ventricular chamber size is mildly dilated. Mild concentric left ventricular hypertrophy is observed. The estimated ejection fraction is 55-60%. Abnormal left ventricular diastolic filling is observed, consistent with impaired relaxation. There is prolapse of the anterior leaflet of the mitral valve. There is a trace of mitral regurgitatiobn Trace valvular regurgitation elsewhere. Negative agitated saline injection. If there is a high index of suspicion for a cardiac source of embolism, consider further evaluation with transesophageal echocardiography. Measurements Name Value Normal Range RVIDd (AP) 2D 3.1 cm (0.9 - 2.6) RVDdMajor (2D) 2.8 cm (2.2 - 4.4) RAd ISD 4CH 4.8 cm (3.4 - 4.9) RA (A4C)W 3.6 cm (2.9 - 4.6) IVSd (2D) 1.3 cm (0.6 - 1) LVPWd (2D) 1.1 cm (0.6 - 1) LVIDd (2D) 5.6 cm (3.6 - 5.4) LVIDs (2D) 3.5 cm - LV FS (2D) 37 % (25 - 45) Aortic Annulus 2.7 cm (1.4 - 2.6) Ao root diameter (2D) 3.9 cm (2.1 - 3.5) Ascending Ao 3.4 cm (2.1 - 3.4) Aortic arch 3.4 cm (1.8 - 3.4) LA dimension (AP) 2D 3.9 cm (2.3 - 3.8) LAd ISD 4CH 4.9 cm (2.9 - 5.3) LA ISD 4CH W 4.7 cm (2.5 - 4.5) Name Value Normal Range LA ESV SP 4CH (A/L) 72.65 ml - LA ESV SP 2CH (A/L) 77.6 ml - LA ESV BP (A/L) 75.74 ml - LA ESV BP (A/L) index 34 ml/m2 - LA ESV SP 4CH (MOD) 66.19 ml - LA ESV SP 2CH (MOD) 72.03 ml - Name Value Normal Range MV E-wave Vmax 0.4 m/sec - MV deceleration time 180 msec - MV A-wave Vmax 0.5 m/sec - MV E:A ratio 0.8 ratio - LV septal e' Vmax 0.06 m/sec - LV lateral e' Vmax 0.07 m/sec - LV E:e' septal ratio 7 ratio - LV E:e' lateral ratio 6 ratio - Name Value Normal Range AV Vmax 1.3 m/sec - AV VTI 23 cm - AV peak gradient 7 mmHg - AV mean gradient 3.5 mmHg - LVOT Vmax 0.9 m/sec - LVOT VTI 17.1 cm - LVOT peak gradient 3.2 mmHg - LVOT mean gradient 1.6 mmHg - AMOS Vmax 0.7 m/sec - Name Value Normal Range RAP 8 mmHg - IVC diameter 2.1 cm - Name Value Normal Range PV Vmax 0.7 m/sec - PV peak gradient 2 mmHg -
--- NOTE | 2017-07-28 02:00 | EEG ---
ELECTROENCEPHALOGRAPHY: DATE OF STUDY: 07/27/17 - ROOM #433 PATIENT OF: Dr. Mariela Buitrago. CLINICAL PROBLEM: This is a 61-year-old man being evaluated for a 2-day history of altered mental status and some speech difficulties. This study was done to evaluate for possible seizures or encephalopathy. MEDICATIONS: Include: 1. Aspirin. 2. Maalox. 3. Colace. 4. Zofran. 5. Senokot. REPORT: With the patient awake, background cerebral activity consists of moderate amplitude posterior dominant 9 Hz rhythm. The patient's sleep background consists of diffuse delta and theta activity with some admixed alpha frequencies. No epileptiform potentials, focal abnormalities, or major asymmetries of background are noted. CLINICAL IMPRESSION: This awake and asleep EEG is within normal limits. [id number]/[facility] #: [id number] [facility]
--- NOTE | 2017-07-28 05:04 | DS ---
CC: Dr. Jami Olvera * [facility] MEDICINE DISCHARGE SUMMARY: DATE OF ADMISSION: 07/26/17 DATE OF ADMISSION: 07/27/17 PRIMARY CARE PHYSICIAN: Dr. Jaim Olvera. ATTENDING PHYSICIAN: Dr. Trent Cano * (dictation provided by Kiana Valle NP). PRIMARY DIAGNOSIS: Expressive aphasia secondary to cerebrovascular accident. SECONDARY DIAGNOSIS: History of recent perianal abscess, status post I and D. MEDICATIONS AT THE TIME OF DISCHARGE: 1. Aspirin 81 mg p.o. daily. 2. Atorvastatin 20 mg p.o. daily. 3. Amlodipine 2.5 mg p.o. daily ( to be initiated after follow up with PCP). HOSPITAL COURSE: Mr. Terrell is a 61-year-old male with a past medical history only of recent perianal abscess treated by Dr. Barksdale and his team, who presented to the hospital on 07/26/17 with concerns for altered mental status. Please see the dictated H and P from Mariela Buitrago DO for complete details. In brief, the patient's reported that he had developed a perianal abscess about 2 weeks prior to presentation. He had incision and drainage on 07/12/17 and also completed a course of antibiotics. He had recovered from this well; however, on the 07/24/17, he developed flu-like symptoms with body aches and malaise. On 07/26/17, the patient was noted to be very quiet and withdrawn. His was concerned and took him in to be [facility] out of concern there was return of the abscess and infection. Staff there noted his altered mental status with word finding difficulty and confusion. Mr. Terrell was admitted to the hospital. His workup has included a CT of the brain, which showed no acute intracranial pathology. He had a chest x-ray showed no active cardiopulmonary disease. Because of the presence of the perianal abscess history, there was concern for occult infection and he did go on for an abdomen and pelvis CT, which showed "diverticulosis. There was perianal gas density given the history of perianal abscess. This may reflect the sequelae of perianal abscess incision and drainage. Recommend correlation with any history of recent instrumentation. There is no definite loculated fluid collection to suggest residual abscess. Small fat containing left inguinal hernia." He had a head CTA, which showed "no internal carotid artery stenosis by NASCET criteria. No aneurysm, vascular malformation, occlusion or stenosis of the visualized intracranial circulation." He had an MRI of the brain, which showed "unremarkable MRI of the brain. There is no restricted diffusion to suggest acute infarct." His laboratory values showed no leukocytosis. He had a hemoglobin of 13.4, very slight anemia. He had normal electrolytes, normal renal function. CRP was 5.76. His urine showed no evidence of infection. His serum alcohol level was less than 10. Mr. Terrell was observed in the hospital overnight with telemetry monitoring which showed no evidence of arrhythmia. In the morning, he was first evaluated by Dr. Garcia and then by Dr. Guzman from Neurology. Initially, based on the exam and concern for an aphasia with recent illness, multiple etiologies were entertained including autoimmune disorder, infection and even possibility of recent lead exposure while he was working on his home. However, on followup examination by Dr. Guzman, the patient's symptoms have greatly improved. It is the suspicion of Neurology that based on the patient's brief time course of expressive aphasia and otherwise negative workup that his symptoms are consistent with a stroke that was not visualized on the MRI due to the fact that it was very small. Dr. Guzman and Dr. Garcia agreed that the patient should be placed on aspirin and atorvastatin. The patient has a very mildly elevated blood pressure during the hospitalization, systolically running about 140 and because of the concern for recent stroke have initiated low dose amlodipine that he should begin after the acute stroke period has passed (after evaluation by PCP). The patient also had a transthoracic echocardiogram that showed no evidence of PFO and showed an intact ejection fraction with no significant valvular abnormalities. In terms of other possible risk factors for stroke, the patient does describe symptoms consistent with sleep apnea and we are recommending that he have outpatient sleep study. He has not had any AFib identified here, but because there are no other significant risk factors, we recommend placement of a loop recorder outpatient for monitoring for AFib. Mr. Terrell is doing well. He has no further expressive aphasia and his symptoms have resolved. Our plans are for him to follow up with the providers at [facility]. In the past, he had seen Dr. 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 DISPOSITION: Home. DIET: Low fat. ACTIVITY: As tolerated. FOLLOWUP PLAN: Please follow up with the physician at [facility]. TIME SPENT: Approximately 60 minutes were spent on the discharge of this patient, more than half that time was spent with the patient at the bedside reviewing the events leading up to this hospitalization, performing the physical examination, and reviewing my plan of care. KIANA VALLE NP [id number]/[facility] #: [id number] CHIKIS
--- NOTE | 2017-07-30 04:25 | PN ---
CC: Harry Porter MD * NEUROLOGICAL FOLLOWUP NOTE: DATE OF FOLLOWUP: PATIENT OF: Kiana Valle NP HISTORY: This is a 61-year-old man who Dr. Garcia saw earlier today and has dictated the consult note. I came back to see how he was doing in consideration of possibly having a spinal tap done. He feels that since this morning, and his son is there now, his speech has dramatically improved and was improving perhaps overnight as well. In discussing with him and his son, he said that he would know his daughter's name, but could not think of it because the word would not come to it, but if asked, he would shake his head yes. It was more that than actual confusion, but there was a minor element of confusion as well. There was no numbness or weakness. He has had no clear-cut staring spell or seizure activity with this, according to Dr. Garcia who signed out to me and also per the son and the patient. PHYSICAL EXAMINATION: Vital signs are stable. He has normal speech and word finding now and repetition. He knows his daughter's name and her birthday. When serial 7s, he still can get down into the 60s, but he is a little bit slower than he was and it seemed like he was searching a little harder than he had in the past and he feels that this is true. Motor exam revealed normal tone and strength. Chest: Clear. Cardiovascular: Regular rate and rhythm. DIAGNOSTIC STUDIES/LAB DATA: His MRI scan was reviewed and was normal. His CTA did not show any sign of significant atherosclerotic disease. His EEG was normal. His LDL was 90. Rest of the above are as previously described. IMPRESSION AND PLAN: Given his time course of what sounds most like an aphasia with improvement within a day, I think he has had a minor stroke with a negative MRI scan and I will continue the aspirin for now since he does not have much in the way of cardiovascular risk factors. I discussed with him obtaining long-term monitoring. He is going to read about it and then make a decision in the next, hopefully later today if that can be set up. He should also, this can be done as an outpatient, get a SARAH echo. He also should go on a statin for his cholesterol of 90 and he should get a sleep study for his significant snoring since that can be a risk factor for stroke. I discussed with him that it is impossible to be sure that this is what actually happened, but by his history, this is the most likely thing. [id number]/[facility] #: [id number] CHIKIS
== END 2017-07-27 20:11 | disposition home or self-care (01) ==
LOC: ED 15:42 → MEDTELE 20:41
PROVIDERS: ADMIT Pediatrics; ATTEND Internal Medicine
DX: I63.9 Cerebral infarction, unspecified (principal); R47.01 Aphasia; Z79.899 Other long term (current) drug therapy; K61.0 Anal abscess; K57.90 Diverticulosis of intestine, part unspecified, without perforation or abscess without bleeding
CPT/HCPCS: 36415; 70450; 70496; 70498; 70551; 71046; 74177; 80048; 80053; 80061; 80320; 80329; 81003; 82140; 82550; 82553; 82607; 83605; 83690; 83735; 83880; 84155; 84165; 84439; 84443; 84481; 84484; 85025; 85610; 85652; 85730; 86038; 86140; 86141; 86618; 87502; 93005; 93306; 95819; 99284; A9270-GY; G0378; G0480; J1644; J3411; Q9967

== ENCOUNTER 2017-12-11 12:59 | Day surgery (SDC) | payer BC ==
--- NOTE | 2017-11-29 16:19 | HP ---
CC: Dr. Porter, [facility] * DATE OF ADMISSION: 12/11/2017. ATTENDING SURGEON: Dr. Amrik Barksdale * (DAIHSA Miller dictating). CHIEF COMPLAINT: Anal fistula. HISTORY OF PRESENT ILLNESS: This is a 62-year-old male who underwent I and D of perirectal abscess in July of this year. The patient was treated with oral antibiotics as well as packing changes following I and D. The process gradually improved and things seem to have healed. However, beginning a couple of weeks ago, the patient began to notice some soiling on his underwear that has been intermittent since that time, usually associated with increased activity. He denies pain, fever, or chills. He presented and was seen by Dr. Barksdale on 11/26/2017. At that time, anorectal exam revealed a healed scar at the 10 o'clock position (with the patient prone jackknife). At 11 o'clock, a sinus tract was noted during serosanguineous fluid and at 2 o'clock there was a 1 cm palpable, well- circumscribed, nontender subcutaneous nodule. It was unclear if the nodule was in any way related, but a recommendation was made for examination under anesthesia, possible fistulotomy and possible seton placement. The patient understands the recommendations, the risks, benefits and alternatives, and would like to proceed as scheduled. PAST MEDICAL HISTORY: Past history of alcohol abuse (he quit ten years ago). In conjunction with the abscess in July, he apparently had some mental status changes that ultimately were likely related to the infection. See separate neurology consult. He was placed on a statin and recommended to take aspirin at that time. PAST SURGICAL HISTORY: Left knee arthroscopy. CURRENT MEDICATIONS: 1. Atorvastatin 20 mg once daily. 2. Aspirin 325 mg once daily (he generally takes about three times per week). ALLERGIES: None known. FAMILY HISTORY: Negative for anesthesia problems, bleeding, or clotting disorders. SOCIAL HISTORY: The patient is and lives with his . 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 He is a former smoker who quit ten years ago after one-half pack for 30 years. He formerly drank heavily, but stopped in 2007. He denies any recent recreational drug use. REVIEW OF SYSTEMS: General: No recent constitutional symptoms or acute illnesses other than described in the HPI. His weight has been stable. HEENT: No recent problems reported. Cardiovascular: No chest pain, palpations, history of hypertension or heart murmur. Respiratory: No history of asthma, chronic cough or shortness of breath. GI: As above per HPI. No other significant symptomatology. He did undergo colonoscopy earlier this year which he states was a normal report. After he had been informed by the [facility] that his blood tested positive for Hepatitis C, he was evaluated by Gastroenterology and was told that there was no evidence of same. : No problems reported. Endocrine: No diabetes or thyroid dysfunction. Remainder of review of systems was negative. PHYSICAL EXAMINATION GENERAL: Well-nourished, well-developed male in no acute distress. SKIN: Warm and dry, no suspicious rashes or lesions. VITAL SIGNS: Height 72 inches, weight 250 pounds, temperature 97.2, blood pressure 132/80, pulse 72, respirations 18. HEENT: Pupils equal and round, reactive. EOM's intact. No conjunctival pallor. Oropharynx: Teeth in good repair. No intraoral lesions. NECK: No lymphadenopathy, thyromegaly, or masses. LUNGS: Lungs clear to auscultation. No wheezes. HEART: Regular rate and rhythm, no murmur noted. ABDOMEN: Soft, nontender to palpitation. No palpable masses or hepatosplenomegaly. BACK: No spinous process or CVA tenderness. EXTREMITIES: No edema. GENITALIA: Within normal limits. No palpable inguinal hernias. There is a slight positive cough impulse on the right. RECTAL: No repeated (see above per Dr. Braksdale' exam from 11/26/2017). NEUROLOGIC: Grossly intact. IMPRESSION: Anal fistula. PLAN: Examination under anesthesia; possible fistulotomy; possible seton placement. DAISHA MILLER [id number]/[facility] #: [id number] MTDD
[~2017-12-11 12:59] MED LIST: Buffered Lidocaine 0.9% SYRIN* 5 ML/SYR SYRINGE INTRADERM ONE; Famotidine IV* 10 MG/ML 2 ML (20 mg) IV ONE
[2017-12-11] MEDS ORDERED: Famotidine IV* 10 MG/ML 2 ML (20 mg) ONE (13:14)
[2017-12-11] MEDS ORDERED: ceFOXitin 2 GM IVPREMIX* 2 GM/50 ML BAG ONE (13:15)
[2017-12-11] MEDS ORDERED: fentaNYL* 50 MCG/ML 2 ML VIAL (100 MCG VIAL) ONE (13:40)
[2017-12-11] MEDS ORDERED: Midazolam* 1 MG/ML 5 ML VIAL (5 MG) ONE (13:40)
[2017-12-11] MEDS ORDERED: Midazolam* 1 MG/ML 2 ML VIAL (2 MG) ONE (13:47)
[2017-12-11] MEDS ORDERED: Propofol* 10 MG/ML 20 ML BTL IV PUSH ONE (13:59)
[2017-12-11] MEDS ORDERED: Ondansetron INJ* 2 MG/ML VIAL ONE (13:59)
[2017-12-11] MEDS ORDERED: Ketorolac INJ* 30 MG/ML 1 ML VIAL ONE (13:59)
[2017-12-11] MEDS ORDERED: oxyCODONE/Acetamin 5/325 MG* TAB PO PRN (14:40)
[2017-12-11] MEDS ORDERED: DiMENhydriNATE IV* 50 MG/ML VIAL IV PUSH PRN (14:40)
[2017-12-11] MEDS ORDERED: Naloxone* 0.4 MG/ML 1 ML VIAL IV PRN (14:40)
[2017-12-11] MEDS ORDERED: HYDROmorphone INJ* 0.5 MG/0.5 ML SYRINGE IV PRN (14:40)
[2017-12-11] MEDS ORDERED: Bupivacaine 0.25% W/EPI* 10 ML SDV ONE (14:45)
[2017-12-11] MEDS ORDERED: Methylene Blue 0.5 %* 50 MG/10 ML AMP IV ONE (14:45)
[2017-12-11] MEDS ORDERED: Gelfoam Sponge SIZE 100* SPONGE ONE (14:45)
[2017-12-11] MEDS ORDERED: oxyCODONE/Acetamin 5/325 MG* TAB ONE (16:41)
[2017-12-11 18:06] VITALS: BP 135/90
--- NOTE | 2017-12-11 22:54 | OP ---
CC: Harry Porter MD * DATE OF OPERATION: 12/11/17 - [facility] DATE OF : 57 SURGEON: Amrik Barksdale MD SURGICAL SCHEDULER: None. ANESTHESIOLOGIST: Dr. Rush. ANESTHESIA: Spinal/local MAC. PRE-OP DIAGNOSIS: Anal fistula. POST-OP DIAGNOSIS: Anorectal abscess. OPERATIVE PROCEDURE: Anorectal examination under anesthesia, and incision and drainage of anorectal abscess. ESTIMATED BLOOD LOSS: Minimal. IV FLUIDS: Crystalloid. SPECIMENS: None. DRAINS: A 0.25-inch Sophie. COMPLICATIONS: None. COUNTS: Instruments, needle, sponge counts were correct. DESCRIPTION OF PROCEDURE: The patient was brought to the operating room, placed on the table. He received a spinal anesthetic and then was positioned prone Jackknife. Buttocks were taped laterally and he was prepped and draped in sterile fashion. Time-out was performed. Digital rectal examination was performed. No masses were identified. Anal retractors were placed. The draining sinus tract located at approximately 10- 11 o'clock was intubated with an 18-gauge Angiocath attached to syringe with hydrogen peroxide. The peroxide was injected into the tract and inspection within the anal canal did not reveal any evidence of a primary opening. However , on the contralateral side at approximately 1 o'clock, there was a palpable swelling within the subcutaneous tissues which extended to about 3 cm. Compression of this area resulted in the peroxide bubbling out of the sinus tract and this collection appeared to be extra sphincteric at the 1 o'clock position. Therefore, a counter incision was made at that site and a curved clamp was used to enter into an abscess cavity where a combination of purulent fluid and peroxide bubbles was drained. This was irrigated and curetted of debris and a 0.25-inch Sophie drain was placed through this site and was drawn through the sinus tract at the 11 o'clock site which was enlarged to accommodate the drain. This drain was sutured at each site with 0 silk. The procedure was concluded at this point and dressings were applied. 0.25% Bupivicaine was infiltrated at the incision sites. The patient was then awakened and transferred to Recovery in stable condition. [id number]/[facility] #: [id number] [facility]
== END 2017-12-11 18:00 | disposition home or self-care (01) ==
LOC: OR 12:59
PROVIDERS: ATTEND Surgery
DX: K61.2 Anorectal abscess (principal); I10 Essential (primary) hypertension; E78.5 Hyperlipidemia, unspecified; F10.21 Alcohol dependence, in remission
CPT/HCPCS: A9270-GY; J0694; J1885; J2250; J2405; J2704; J3010